=== PATIENT | female | born 1960 | race Hispanic/Latino ===

== ENCOUNTER 2020-09-25 12:13 | Emergency (ER) | payer OTHER ==
--- OUTSIDE RECORDS SUMMARY | 2020-09-25 12:15 | XMS REPORT | Continuity of Care Document ---
:1960 Author Organization [facility] t Address [address] [place] [address] Care Team Providers Name Role Phone Martita Belkys DE LOS SANTOS Attending Clinician Praveena Luke MD Attending Clinician Problems This patient has no known problems. Allergies, Adverse Reactions, Alerts This patient has no known allergies or adverse reactions. Medications This patient has no known medications. Procedures This patient has no known procedures. Encounters Start End Encounter Admission Attending Care Care Encounter Source Date/Time Date/Time Type Type Clinicians Facility Department ID 2020-09-22 2020-09-22 Emergency [facility] [id number] 15:18:00 18:47:00 Zehra Jones [id number] [place] [id number] [place] [id number] 2020-09-06 2020-09-[address] [facility] [id number] 00:00:00 00:00:00 Clarisse Jones [id number] [place] [id number] [facility] [id number] critical access hospital 231 [facility] Results This patient has no known results.
--- OUTSIDE RECORDS SUMMARY | 2020-09-25 12:15 | XMS REPORT | Summary of Care ---
:1960 Author Organization [facility] Address [address] [place] [address] Care Team Providers Name Role Phone MD Alek Unavailable Praveena Luke MD Primary Care Provider Reason for Visit Reason Comments Follow-up Asthma WHEEZING Cough with greenish colored phlegm Encounter Details Date Type Department Care Team Description 07/08/2020 Office Visit [facility] ADC Jenny Roman DO Mild persistent asthma Pulmonary Clinic [facility] without complication [address] [place] [address] ARNOLD Albert (Primary Dx) [address] [place] [phone] Allergies No Known Allergiesdocumented as of this encounter (statuses as of 07/08/2020) Medications Medication Sig Dispensed Refills Start End Date Status Date clonazePAM Take 1 mg by 0 Active (KLONOPIN) 1 mg mouth 2 (two) 6 tablet times daily. lancets (FREESTYLE Check blood 100 Each 11 Active LANCETS) 28 gauge sugar at 6 Misc least once daily. E11.9 blood sugar One Touch 100 Strip 3 Active diagnostic Ultra. Check 7 stripIndications: blood sugar Diet-controlled at least once diabetes mellitus daily E11.9 carBAMazepine 200 mg Take 1 tablet 0 Active 12 hr by mouth at 8 tabletIndications: bedtime. Seizures mometasone (NASONEX) Use 1 [place]ola 17 g 11 Active 50 mcg/actuation in each 8 nasal nostril sprayIndications: daily. Chronic seasonal allergic rhinitis, unspecified trigger triamcinolone Apply to 15 g 1 Active acetonide 0.1 % area(s) 3 8 ointmentIndications: (three) times Dermatitis daily. fluticasone 50 Use 2 Sprays 16 g 11 Ac tive mcg/actuation nasal in each 9 sprayIndications: nostril Allergic rhinitis, daily. unspecified seasonality, unspecified trigger montelukast Take 1 tablet 30 tablet 11 Acti ve (SINGULAIR) 10 mg by mouth at 9 tabletIndications: bedtime. Allergic rhinitis, unspecified seasonality, unspecified trigger, Mild intermittent asthma without complication ipratropium 0.03 % Use 2 Sprays 30 mL 3 Active nasal in each 9 sprayIndications: nostril 3 Cough (three) times daily. ipratropium 0.02 % Inhale 2.5 mL 60 Vial 3 Active nebulizer every 6 (six) 0 solutionIndications: hours as Chronic obstructive needed for pulmonary disease, Wheezing or unspecified COPD Shortness of type Breath. albuterol 2.5 mg /3 Inhale 3 mL 60 Vial 6 Active mL (0.083 %) every 6 (six) 0 nebulizer hours as solutionIndications: needed for Chronic obstructive Wheezing or pulmonary disease, Shortness of unspecified COPD Breath. type LORATADINE 10 mg TAKE ONE 90 tablet 3 Act ivan tabletIndications: TABLET BY 0 Allergic rhinitis, MOUTH DAILY unspecified seasonality, unspecified trigger meloxicam 7.5 mg Take 1 tablet 60 tablet 3 Active tabletIndications: by mouth 0 Arthritis daily. If not helping arthritis pain take 2 daily. levETIRAcetam 750 mg 0 Active tablet 0 ibuprofen 600 mg Take 1 tablet 20 tablet 0 Active tabletIndications: by mouth 0 Sore throat every 6 (six) hours as needed for Pain (scale 4-6). citalopram 40 mg Take 1 tablet 0 Active tabletIndications: by mouth 0 Depression, daily. unspecified depression type OMEPRAZOLE 40 mg TAKE ONE 30 capsule 9 Ac tive capsuleIndications: CAPSULE BY 0 Gastroesophageal MOUTH DAILY reflux disease, esophagitis presence not specified budesonide-formotero Inhale 2 10.2 g 11 Active L (SYMBICORT) Puffs 2 (two) 0 160-4.5 times daily. mcg/actuation inhalerIndications: Mild persistent asthma without complication beclomethasone Inhale 2 0 07/08/20 Disco ntinued dipropionate (QVAR) Puffs 2 (two) 20 (Alternate 80 mcg/actuation times daily. therapy) inhaler budesonide-formotero Inhale 2 10.2 g 6 07/08/20 Discontinued L (SYMBICORT) Puffs 2 (two) 0 20 (R eorder) 160-4.5 times daily. mcg/actuation inhalerIndications: Mild intermittent asthma without complication documented as of this encounter (statuses as of 07/08/2020) Active Problems Problem Noted Date Cough 10/17/2019 Essential hypertension, benign 06/23/2017 Obesity (BMI 30-39.9) 04/27/2017 Seizures 02/18/2016 Overview: Currently being managed by Dr. Sierra in [place] Depression 02/18/2016 Overview: Currently being managed by (Patient cannot remember name) Colon polyps 01/05/2016 Overview: Needs repeat colonoscopy in 3 years, [place] roximately December 2018. Abdominal pain 12/07/2015 cough 08/07/2015 Diet-controlled diabetes mellitus COPD (chronic obstructive pulmonary disease) Overview: not following with logistics center manager. Asthma Overview: follows with Dr. Arambula in [place] documented as of this encounter (statuses as of 07/08/2020) Resolved Problems Problem Noted Date Resolved Date Abscess of abdominal wall 12/14/2015 05/26/2016 Bronchitis, allergic, mild persistent, with acute 08/07/2015 05/26/2016 exacerbation documented as of this encounter (statuses as of 07/08/2020) Immunizations Name Administration Dates Next Due Influenza Virus Vaccine 08/27/2017 Influenza Virus Vaccine Quad .5 mL IM 6+ MO 07/30/2018 Influenza Virus Vaccine Quad ID 18-64 YRS 07/26/2016 Influenza Virus Vaccine Recomb Quad IM, Preserv and ABX 06/09 Free 18-64 YRS Pneumococcal Polysaccharide, PPSV23 (PNEUMOVAX) 06/22/2017 Td 09/12/2015 Zoster Vaccine Recombinant 02/01/2019 documented as of this encounter Social History Tobacco Use Types Packs/Day Years Used Date Former Smoker Cigarettes 0.1 Quit: 02/18/20 06 Smokeless Tobacco: Never Used Alcohol Use Drinks/Week oz/Week Comments No 0 Standard drinks or equivalent 0.0 Sex Assigned at Date Recorded Not on file COVID-19 Exposure Response Date Recorded In the last month, have you been in contact with No / Unsure 07/08/2020 9:42 AM CDT someone who was confirmed or suspected to have Coronavirus / COVID-19? documented as of this encounter Last Filed Vital Signs Vital Sign Reading Time Taken Comments Blood Pressure 138/77 07/08/2020 9:46 AM CDT Pulse 67 07/08/2020 9:46 AM CDT Temperature - - Respiratory Rate 19 07/08/2020 9:46 AM CDT Oxygen Saturation 98% 07/08/2020 9:46 AM CDT Inhaled Oxygen Concentration - - Weight 75.8 kg (167 lb 1.6 oz) 07/08/2020 9:46 AM CDT Height 152.4 cm (5') 07/08/2020 9:46 AM CDT Body Mass Index 32.63 07/08/2020 9:46 AM CDT documented in this encounter Progress Notes Jenny Roman DO - 07/08/2020 10:00 AM CDT [facility] Chief Complaint: Follow up for asthma History of Present Illness: Ml Patino is a 60 year old female her for follow up of asthma last seen two months ago. At that visit, stopped Spiriva and Q emma two visit ago and Symbicort stopped last visit. Did okay but in the last week has had more wheezing as well as cough. Past Medical History: has a past medical history of Asthma, COPD (chronic obstructive pulmonary disease), Depression, Diet-controlled diabetes mellitus, Hypertension, Seasonal allergies, and Seizures. Past Surgical History: has a past surgical history that includes cholecystectomy; section;incision and drainage of abscess; colonoscopy (N/A, 12/28/2015); colonoscopy (01/05/2016); and radicalhysterectomy. Family History: family history includes Cancer in her father; Diabetes in her mother; Heart in her mother. Social History: reports that she quit smoking about 14 years ago. Her smoking use included cigarettes. She smoked 0.10 packs per day. She has never used smokeless tobacco. She reports that she does not drink alcohol or use drugs. Review of Systems: Review of Systems Constitutional: Negative. HENT: Negative. Eyes: Negative. Respiratory: Positive for cough, shortness of breath and wheezing. Cardiovascular: Negative. Gastrointestinal: Negative. Genitourinary: Negative. Musculoskeletal: Negative. Skin: Negative. Neurological: Negative. Psychiatric/Behavioral: Negative. Endocrine: Endocrine negative Objective: BP 138/77 (BP Location: Left arm, Patient Position: Sitting, BP CUFF SIZE: Adult Medium) | Pulse 67 | Resp 19 | Ht 5' (1.524 m) | Wt 167 lb 1.6 oz (75.8 kg) | LMP (LMP Unknown) | SpO2 98% | BMI32.63 kg/m Physical Exam Constitutional: She is oriented to person, place, and time. She appears well- developed and well-nourished. HENT: Head: Normocephalic and atraumatic. Eyes: Conjunctivae and EOM are normal. Neck: Normal range of motion. Neck supple. Cardiovascular: Normal rate and regular rhythm. Pulmonary/Chest: Effort normal. She has wheezes. Abdominal: Soft. Bowel sounds are normal. She exhibits no distension. Musculoskeletal: Normal range of motion. Neurological: She is alert and oriented to person, place, and time. Skin: Skin is warm and dry. Psychiatric: She has a normal mood and affect. Her behavior is normal. Judgment and thought content normal. Labs/Studies: 2017 PFT normal spirometry and lung volumes Assessment: ICD-10-CM ICD-9-CM 1. Mild persistent asthma without complication J45.30 493.90 Possible early asthma exacerbation Plan: Restart Symbicort C/w albuterol If patient does not improve or worsens let us know and we will prescribe prednisone 40 mg x 5 days over the phone Otherwise f/u 4 months documented in this encounter Plan of Treatment Date Type Specialty Care Team Description 08/19/2020 Office Visit Pulmonary Disease Jenny Roman DO [address] [place] [address] Health Maintenance Due Date Last Done Comments COLON CANCER SCREENING 2009 ANNUAL FIT/FOBT COLON CANCER SCREENING FIT 2009 DNA EVERY 3 YEARS COLON CANCER SCREENING 2009 SIGMOIDOSCOPY EVERY 5 YEARS CREATININE (SERUM) 01/28/2020 01/27/2019, 12/31/2017, 04/27/2017, Additional history exists LDL-C 01/28/2020 01/27/2019, 12/31/2017, 12/11/2016 INFLUENZA VACCINE (#1) 2020 06/30/2019, 07/30/2018, 08/27/2017 FOOT EXAM 09/02/2020 09/02/2019, 09/02/2019, 06/27/2018, Additional history exists HgA1C 09/18/2020 03/19/2020, 09/08/2019, 01/27/2019, Additional history exists Zoster Recombinant Vaccine 10/07/2020 02/01/2019 Postp oned from ([facility]) (2 of 2) 03/29/2019 ( Insurance / Financial) Depression Screening 02/09/2021 02/10/2020 EYE EXAM 02/16/2021 02/17/2020, 10/16/2018, 11/15/2016 (Previously completed) URINE MICROALBUMIN 03/19/2021 03/19/2020, 01/27/2019, 12/31/2017, Additional history exists PAP SMEAR 05/05/2021 05/05/2016, 11/24/2010, 02/25/2004 Breast Cancer Screening 05/11/2021 05/11/2020, 01/08/2019, (MAMMOGRAM) 07/02/2017, Additional history exists DTaP,Tdap,and Td Vaccines 12/19/2024 09/12/2015 Postpo ortiz from (1 - Tdap) 1978 (Alternative Guidelines) COLONOSCOPY 05/25/2026 05/25/2016 Colorectal Cancer Screening 05/25/2026 HEPATITIS C (HCV) SCREEN Completed 12/20/2016 PNEUMOCOCCAL 0-64 YEARS Completed 06/22/2017 COMBINED SERIES LUNG CANCER SCREEN: Discontinued Recommended for age 55-80 with 30 + pack year history documented as of this encounter Results Not on filedocumented in this encounter Visit Diagnoses Diagnosis Mild persistent asthma without complicat ion - Primary Unspecified asthma documented in this encounter Insurance Payer Benefit Plan / Subscriber ID Effective Dates Phone Addre ss Type Group [facility] [id number] 2016-Present Medicaid COMM PLAN - PLUS MANAGED MEDICAID documented as of this encounter"
--- OUTSIDE RECORDS SUMMARY | 2020-09-25 12:15 | XMS REPORT | Summary of Care ---
:1960 Author Organization [facility] - Health Address [address] [place] [address] Care Team Providers Name Role Phone MD Alek Unavailable Tanna Luke MD Primary Care Provider Reason for Visit Reason Comments Sore Throat Cough LAB Encounter Details Date Type Department Care Team Description 07/06/2020 Laboratory Only [facility] Jeniffer Matthew, [employer] [address] [place] [address] Exposure to Medicine - [facility], [facility] Fam Pob I SARS-associated [address] [facility] coronaviru s ([address] Drive Dx) [place] [address] Allergies No Known Allergiesdocumented as of this encounter (statuses as of 07/06/2020) Medications Medication Sig Dispensed Refills Start Date End Date Status clonazePAM (KLONOPIN) 1 Take 1 mg by 0 12/20/2015 Active mg tablet mouth 2 (two) times daily. beclomethasone Inhale 2 Puffs 2 0 Active dipropionate (QVAR) 80 (two) times mcg/actuation inhaler daily. lancets (FREESTYLE Check blood 100 Each 11 09/26/2016 Active LANCETS) 28 gauge Misc sugar at least once daily. E11.9 blood sugar diagnostic One Touch Ultra. 100 Strip 3 12/21/2016 Active stripIndications: Check blood Diet-controlled sugar at least diabetes mellitus once daily E11.9 carBAMazepine 200 mg 12 Take 1 tablet by 0 8 Active hr tabletIndications: mouth at Seizures bedtime. mometasone (NASONEX) 50 Use 1 [place] in 17 g 11 12/25/2017 Active mcg/actuation nasal each nostril sprayIndications: daily. Chronic seasonal allergic rhinitis, unspecified trigger triamcinolone acetonide Apply to 15 g 1 07/30/2018 Active 0.1 % area(s) 3 ointmentIndications: (three) times Dermatitis daily. fluticasone 50 Use 2 Sprays in 16 g 11 12/31/2018 Active mcg/actuation nasal each nostril sprayIndications: daily. Allergic rhinitis, unspecified seasonality, unspecified trigger montelukast (SINGULAIR) Take 1 tablet by 30 tablet 11 9 Active 10 mg mouth at tabletIndications: bedtime. Allergic rhinitis, unspecified seasonality, unspecified trigger, Mild intermittent asthma without complication ipratropium 0.03 % Use 2 Sprays in 30 mL 3 09/02/2019 Active nasal sprayIndications: each nostril 3 Cough (three) times daily. ipratropium 0.02 % Inhale 2.5 mL 60 Vial 3 10/17/2019 Active nebulizer every 6 (six) solutionIndications: hours as needed Chronic obstructive for Wheezing or pulmonary disease, Shortness of unspecified COPD type Breath. albuterol 2.5 mg /3 mL Inhale 3 mL 60 Vial 6 10/17/2019 Active (0.083 %) nebulizer every 6 (six) solutionIndications: hours as needed Chronic obstructive for Wheezing or pulmonary disease, Shortness of unspecified COPD type Breath. LORATADINE 10 mg TAKE ONE TABLET 90 tablet 3 12/24/2019 Active tabletIndications: BY MOUTH DAILY Allergic rhinitis, unspecified seasonality, unspecified trigger meloxicam 7.5 mg Take 1 tablet by 60 tablet 3 02/25/2020 Active tabletIndications: mouth daily. If Arthritis not helping arthritis pain take 2 daily. levETIRAcetam 750 mg 0 02/12/2020 Active tablet ibuprofen 600 mg Take 1 tablet by 20 tablet 0 02/27/2020 Active tabletIndications: Sore mouth every 6 throat (six) hours as needed for Pain (scale 4-6). citalopram 40 mg Take 1 tablet by 0 03/19/2020 Active tabletIndications: mouth daily. Depression, unspecified depression type budesonide-formoteroL Inhale 2 Puffs 2 10.2 g 6 04/06/2020 Active (SYMBICORT) 160-4.5 (two) times mcg/actuation daily. inhalerIndications: Mild intermittent asthma without complication OMEPRAZOLE 40 mg TAKE ONE CAPSULE 30 capsule 9 04/26/2020 Active capsuleIndications: BY MOUTH DAILY Gastroesophageal reflux disease, esophagitis presence not specified documented as of this encounter (statuses as of 07/06/2020) Active Problems Problem Noted Date Cough 10/17/2019 Essential hypertension, benign 06/23/2017 Obesity (BMI 30-39.9) 04/27/2017 Seizures 02/18/2016 Overview: Currently being managed by Dr. Sierra in [place] Depression 02/18/2016 Overview: Currently being managed by (Patient cannot remember name) Colon polyps 01/05/2016 Overview: Needs repeat colonoscopy in 3 years, [place] roximately December 2018. Abdominal pain 12/07/2015 cough 08/07/2015 Diet-controlled diabetes mellitus COPD (chronic obstructive pulmonary disease) Overview: not following with retention representative. Asthma Overview: follows with Dr. Arambula in [place] documented as of this encounter (statuses as of 07/06/2020) Resolved Problems Problem Noted Date Resolved Date Abscess of abdominal wall 12/14/2015 05/26/2016 Bronchitis, allergic, mild persistent, with acute 08/07/2015 05/26/2016 exacerbation documented as of this encounter (statuses as of 07/06/2020) Immunizations Name Administration Dates Next Due Influenza [...] Date Former Smoker Cigarettes 0.1 Quit: 02/18/20 Smokeless Tobacco: Never Used Alcohol Use Drinks/Week oz/Week Comments No 0 Standard drinks or equivalent 0.0 Sex Assigned at Date Recorded Not on file COVID-19 Exposure Response Date Recorded In the last month, have you been in contact with No / Unsure 07/05/2020 9:29 AM CDT someone who was confirmed or suspected to have Coronavirus / COVID-19? documented as of this encounter Last Filed Vital Signs Not on filedocumented in this encounter Nursing Notes Elisabeth Torrez MA - 07/06/2020 5:20 PM CDTRita Sandra Patino is a 60 year old female here for COVID Screening with a Nasopharyngeal Swab All droplet and contact precautions taken with appropriate PPE worn while interacting with patient. ? Goggles ? N95 Mask ? Gloves ? Gown RR 18 Pulse Ox 97% Patient educated on plan of care for visit, swabbing technique, risks and benefits of test and length of time to receive results. Verbal consent obtained to perform test. CDC Fact Sheet for Patients nCoV Diagnostic Panel dated 12/21/2019 and Factsheet What to Do if Sick with COVID 19 12/01/19 provided. Patient swabbed per appropriate nasopharyngeal technique, and patient tolerated well. Patient was discharged from the testing clinic in stable condition. Elisabeth Torrez MA 07/06/2020 4:32 PM Bilate nares swabbed during COVID19 nasopharyngeal swab. documented in this encounter Plan of Treatment Date Type Specialty Care Team Description 07/08/2020 Office Visit Pulmonary Disease Jenny Roman, [address] [place] [phone] 08/19/2020 Office Visit Pulmonary Disease Jenny Roman, [facility] [place] [phone] Name Type Priority Associated Diagnoses Order S chedule COVID-19 (PCR MOLECULAR LAB Routine Exposure to Expe cted: 07/06/2020, TESTING) SARS-associated Expires: coronavirus Health Maintenance Due Date Last Done Comments [...] filedocumented in this encounter Visit Diagnoses Diagnosis Exposure to SARS-associated coronavirus - Primary documented in this encounter Additional Health Concerns Infection Onset Date Last Indicated Resolved Time COVID-19 Rule Out 07/06/2020 07/06/2020 documented as of this encounter Insurance Payer Benefit Plan / Subscriber ID Effective Dates Phone Addre ss Type Group [facility] [id number] 2016-Present Medicaid COMM PLAN - PLUS MANAGED MEDICAID documented as of this encounter
--- OUTSIDE RECORDS SUMMARY | 2020-09-25 12:16 | XMS REPORT | Summary of Care ---
:1960 Author Organization [facility] Address [address] [place] [address] Care Team Providers Name Role Phone MD Alek Unavailable Praveena Luke MD Primary Care Provider Reason for Visit Reason Comments Rx Concern/Question Encounter Details Date Type Department Care Team Description 07/08/2020 Telephone [facility] [employer] ADC Jenny Roman DO Rx Concern/Question Pulmonary Clinic [address] DrAngelica, [address] [place] [phone] Allergies No Known Allergiesdocumented as of this encounter (statuses as of 07/09/2020) Medications Medication Sig Dispensed Refills Start Date End Date Status clonazePAM (KLONOPIN) 1 Take 1 mg by 0 12/20/2015 Active mg tablet mouth 2 (two) times daily. lancets (FREESTYLE Check blood 100 Each 11 09/26/2016 Active LANCETS) 28 gauge Misc sugar at least once daily. E11.9 blood sugar diagnostic One Touch 100 Strip 3 12/21/2016 Active stripIndications: Ultra. Check Diet-controlled blood sugar at diabetes mellitus least once daily E11.9 carBAMazepine 200 mg 12 Take 1 tablet 0 12/25/2017 Active hr tabletIndications: by mouth at Seizures bedtime. mometasone (NASONEX) 50 Use 1 [place] in 17 g 11 12/25/2017 Active mcg/actuation [...] unspecified trigger montelukast (SINGULAIR) Take 1 tablet 30 tablet 11 12/31/2018 Active 10 mg by mouth at tabletIndications: bedtime. Allergic rhinitis, unspecified [...] mg Take 1 tablet 60 tablet 3 02/25/2020 Active tabletIndications: by mouth daily. Arthritis If not helping arthritis pain take 2 daily. levETIRAcetam 750 mg 0 02/12/2020 Active tablet ibuprofen 600 mg Take 1 tablet 20 tablet 0 02/27/2020 Active tabletIndications: Sore by mouth every throat 6 (six) hours as needed for Pain (scale 4-6). citalopram 40 mg Take 1 tablet 0 03/19/2020 Active tabletIndications: by mouth daily. Depression, unspecified depression type OMEPRAZOLE 40 mg TAKE ONE 30 capsule 9 04/26/2020 A ctive capsuleIndications: CAPSULE BY Gastroesophageal reflux MOUTH DAILY disease, esophagitis presence not specified budesonide-formoteroL Inhale 2 Puffs 10.2 g 11 07/08/2020 Active (SYMBICORT) 160-4.5 2 (two) times mcg/actuation daily. inhalerIndications: Mild persistent asthma without complication predniSONE 20 mg Take 2 tablets 10 tablet 0 07/09/2020 020 Active tabletIndications: Mild by mouth daily persistent asthma with for 5 days. exacerbation documented as of this encounter (statuses as of 07/09/2020) Active Problems Problem Noted Date Cough 10/17/2019 Essential hypertension, benign 06/23/2017 Obesity (BMI 30-39.9) 04/27/2017 Seizures 02/18/2016 Overview: Currently being managed by Dr. Sierra in [facility] 02/18/2016 Overview: Currently being managed by (Patient cannot remember name) Colon polyps 01/05/2016 Overview: Needs repeat colonoscopy in 3 years, [place] roximately December 2018. 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 Asthma Overview: follows with Dr. Arambula in [place] documented as of this encounter (statuses as of 07/09/2020) Resolved Problems Problem Noted Date Resolved Date Abscess of abdominal wall 12/14/2015 05/26/2016 Bronchitis, allergic, mild persistent, with acute 08/07/2015 05/26/2016 exacerbation documented as of this encounter (statuses as of 07/09/2020) Immunizations Name Administration Dates Next Due Influenza [...] Signs Not on filedocumented in this encounter Miscellaneous Notes Telephone Encounter - Bridgette Lopez MA - 07/09/2020 2:49 PM CDTPatient was informed and verbalized understanding. elephone Encounter - Jenny Roman DO - 07/09/2020 2:48 PM CDTPrescription sent to pharmacy elephone Encounter - Wanda Dior - 07/08/2020 4:06 PM CDTPatient was seen today 07/[address] Roman, was offered a steroid, but decided no. She is calling stating she would now like to have the steroid prescribed. documented in this encounter Plan of Treatment Date Type Specialty Care Team Description 11/18/2020 Office Visit Pulmonary Disease Jenny Roman DO [address] [place] [address] Health Maintenance Due Date Last [...] without complicat ion - Primary Unspecified asthma Mild intermittent asthma without complic ation Unspecified asthma Mild persistent asthma with exacerbation Unspecified asthma, with exacerbation documented in this encounter Insurance Payer Benefit Plan / Subscriber ID Effective Dates Phone Addre ss Type Group [facility] [id number] 2016-Present Medicaid COMM PLAN - PLUS MANAGED MEDICAID documented as of this encounter
--- OUTSIDE RECORDS SUMMARY | 2020-09-25 12:16 | XMS REPORT | Summary of Care ---
:1960 Author Organization [facility] Address [address] [place] [address] Care Team Providers Name Role Phone MD Alek Unavailable Praveena Luke MD Primary Care Provider Reason for Visit Reason Comments Assessment Encounter Details Date Type Department Care Team Description 08/04/[address] [facility] ADC Pulmonary Jenny Roman DO Assessment Clinic [address] Jenna Albert [address] [place] [phone] Allergies No Known Allergiesdocumented as of this encounter (statuses as of 08/04/2020) Medications Medication Sig Dispensed Refills Start Date [...] Seizures bedtime. mometasone (NASONEX) 50 Use 1 [place] in 17 g 11 12/25/2017 Active mcg/actuation [...] inhalerIndications: Mild persistent asthma without complication predniSONE 10 mg tablet Take 4 tablets 20 tablet 0 08/04/2020 08/09/2020 Active by mouth daily for 5 days. documented as of this encounter (statuses as of 08/04/2020) Active Problems Problem Noted Date Cough 10/17/2019 Essential hypertension, benign 06/23/2017 Obesity (BMI 30-39.9) 04/27/2017 Seizures 02/18/2016 Overview: Currently being managed by Dr. Sierra in [place] Depression 02/18/2016 Overview: Currently being managed by (Patient cannot remember name) Colon polyps 01/05/2016 Overview: Needs repeat colonoscopy in 3 years, [place] roximately December 2018. 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 Asthma Overview: follows with Dr. Arambula in [place] documented as of this encounter (statuses as of 08/04/2020) Resolved Problems Problem Noted Date Resolved Date Abscess of abdominal wall 12/14/2015 05/26/2016 Bronchitis, allergic, mild persistent, with acute 08/07/2015 05/26/2016 exacerbation documented as of this encounter (statuses as of 08/04/2020) Immunizations Name Administration Dates Next Due Influenza [...] this encounter Miscellaneous Notes Telephone Encounter - Yancy Hart RN - 08/04/2020 2:28 PM CDT Summary: feeling worse, wheezing , doesn't feel like symbicort is working We discussed: Full improvement in your symptoms may not occur for 2 weeks or longer after you have started treatment of symbicort. Sent in prednisone as outlined by . Use albuterol nebs every 4 hours as needed. Will reassess Paitient on Sunday . Gave zeng ER warnings.. Patient reports: 1. Increased shortness of breath despite restarting symbicort 2. Wheezing over the phone STUART 10..20 Assessment: ICD-10-CM ICD-9-CM 1. Mild persistent asthma without complication J45.30 493.90 Possible early asthma exacerbation Plan: Restart Symbicort C/w albuterol If patient does not improve or worsens let us know and we will prescribe prednisone 40 mg x 5 days over the phone Otherwise f/u [address] Jenny Roman elephone Encounter - Tracie Laughlin - 08/04/2020 12:17 PM CDTRrahul Patino is a 60 year old female patient is stating that medication she is currently takingdoes not seem to be working. She is requesting something besides symbicort. She is alternating with nebulizer but she is still having trouble with breathing in the PM and is lacking sleep. Please advise. documented in this encounter Plan of Treatment Date Type Specialty Care Team Description 08/18/2020 Office Visit Family Medicine Collin Rodriguez MD [address] [place] [address] Dr [place], [place] [address] 11/18/2020 Office Visit Pulmonary Disease Jenny Roman DO [address] [place] [address] [phone] Health Maintenance Due Date Last Done Comments [...] Results Not on filedocumented in this encounter Insurance Payer Benefit Plan / Subscriber ID Effective Dates Phone Addre ss Type Group [facility] [id number] 2016-Present Medicaid COMM PLAN - PLUS MANAGED MEDICAID documented as of this encounter
--- OUTSIDE RECORDS SUMMARY | 2020-09-25 12:16 | XMS REPORT | Summary of Care ---
:1960 Author Organization [facility] Address [address] [place] [address] Care Team Providers Name Role Phone MD Alek Unavailable Praveena Luke MD Primary Care Provider Reason for Visit Reason Comments Follow-up Asthma WHEEZING Cough with greenish colored phlegm Encounter Details Date Type Department Care Team Description 07/08/2020 Office Visit [facility] ADC Jenny Roman DO Mild persistent asthma Pulmonary Clinic [facility] without complication [address] [place] [address] ARNOLD Albert (Primary Dx) [address] [place] [phone] Allergies No Known Allergiesdocumented as of this [...] tabletIndications: bedtime. Seizures mometasone (NASONEX) Use 1 [place] 17 g 11 Active 50 mcg/actuation in [...] Currently being managed by Dr. Sierra in [place] Depression 02/18/2016 Overview: Currently being managed by (Patient cannot remember name) Colon polyps 01/05/2016 Overview: Needs repeat colonoscopy in 3 years, [place] roximately December 2018. 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 Asthma Overview: follows with Dr. Arambula in [place] documented as of this encounter (statuses as [...] Roman DO - 07/08/2020 10:00 AM CDT [facility] Chief Complaint: Follow [...] Office Visit Pulmonary Disease Jenny Roman DO [address] [place] [address] Health Maintenance Due Date Last [...] Effective Dates Phone Addre ss Type Group [facility] [id number] 2016-Present Medicaid COMM PLAN - PLUS MANAGED MEDICAID documented as of this encounter"
--- OUTSIDE RECORDS SUMMARY | 2020-09-25 12:17 | XMS REPORT | Summary of Care ---
:1960 Author Organization [facility] Address [address] [place] [address] Care Team Providers Name Role Phone MD Alek Unavailable Praveena Luke MD Primary Care Provider Reason for Visit Reason Comments NURSE ONLY Encounter Details Date Type Department Care Team Description 08/16/2020 Nurse Visit [facility] Pediatric Clarisse Luke MD [address] [place] [address] [address] [place] [address] Need for vaccination and Adult Primary Nurse, Brock Fam (Primary Dx) Care- [address], [address] [place] [address] Allergies No Known Allergiesdocumented as of this encounter (statuses as of 08/16/2020) Medications Medication Sig Dispensed Refills Start Date [...] Seizures bedtime. mometasone (NASONEX) 50 Use 1 [place] in 17 g 11 12/25/2017 Active mcg/actuation [...] tabletIndications: mouth daily. Depression, unspecified depression type OMEPRAZOLE 40 mg TAKE ONE CAPSULE 30 capsule 9 04/26/2020 Active capsuleIndications: BY MOUTH DAILY Gastroesophageal reflux disease, esophagitis presence not specified budesonide-formoteroL Inhale 2 Puffs 2 10.2 g 11 07/08/2020 Active (SYMBICORT) 160-4.5 (two) times mcg/actuation daily. inhalerIndications: Mild persistent asthma without complication metformin ER 500 mg 24 Take 1 tablet by 90 tablet 1 08/13/2020 Active hr tabletIndications: mouth daily with Diabetes mellitus type breakfast. II, non insulin dependent documented as of this encounter (statuses as of 08/16/2020) Active Problems Problem Noted Date Need for influenza vaccination 08/13/2020 Cough 10/17/2019 Essential hypertension, benign 06/23/2017 Obesity (BMI 30-39.9) 04/27/2017 Seizures 02/18/2016 Overview: Currently being managed by Dr. Sierra in [facility] 02/18/2016 Overview: Currently being managed by (Patient cannot remember name) Colon polyps 01/05/2016 Overview: Needs repeat colonoscopy in 3 years, [place] roximately December 2018. 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 Asthma Overview: follows with Dr. Arambula in [place] documented as of this encounter (statuses as of 08/16/2020) Resolved Problems Problem Noted Date Resolved Date Abscess of abdominal wall 12/14/2015 05/26/2016 Bronchitis, allergic, mild persistent, with acute 08/07/2015 05/26/2016 exacerbation documented as of this encounter (statuses as of 08/16/2020) Immunizations Name Administration Dates Next Due Influenza Virus Vaccine 08/27/2017 Influenza Virus Vaccine Quad .5 mL IM 6+ MO 08/16/2020, 07/09 Influenza Virus Vaccine Quad ID 18-64 YRS 07/26/2016 Influenza Virus Vaccine Recomb Quad IM, Preserv and 06/30/20 19 ABX Free 18-64 YRS Pneumococcal Polysaccharide, PPSV23 (PNEUMOVAX) [...] been in contact with No / Unsure 08/16/2020 10:20 AM RADIOLOGY THERAPIST someone who was confirmed or suspected to have Coronavirus / COVID-19? documented as of this encounter Last Filed Vital Signs Not on filedocumented in this encounter Plan of Treatment Date Type Specialty Care Team Description 11/16/2020 Office Visit Family Medicine Collin Rodriguez MD [address] [place] [address] Dr [place] [address] [place] [address] [phone] 11/18/2020 Office Visit Pulmonary Disease Jenny Roman DO [address] [place] [phone] Health Maintenance Due Date Last Done Comments [...] year history documented as of this encounter Procedures Procedure Name Priority Date/Time Associated Diagnosis Comme nts FLU VACC ([id number]), Routine 08/16/2020 10:43 AM RADIOLOGY THERAPIST Need for vaccination 6+ MONTHS, IM, QUAD documented in this encounter Results Not on filedocumented in this encounter Visit Diagnoses Diagnosis Need for vaccination - Primary Need for prophylactic vaccination and in oculation against unspecified single disease documented in this encounter Insurance Payer Benefit Plan / Subscriber ID Effective Dates Phone Addre ss Type Group [facility] [id number] 2016-Present Medicaid COMM PLAN - PLUS MANAGED MEDICAID documented as of this encounter
--- OUTSIDE RECORDS SUMMARY | 2020-09-25 12:17 | XMS REPORT | Summary of Care ---
:1960 Author Organization [facility] Address [address] [place] [address] Care Team Providers Name Role Phone MD Alek Unavailable Praveena Luke MD Primary Care Provider Reason for Visit Reason Comments LAB Encounter Details Date Type Department Care Team Description 08/16/2020 Loss Prevention Supervisor Visit [facility] Janelle Luke MD [address] [place] [address] Dr [address] [place] [address] Diabetes mellitus Professional Office 2, [facility] Lab type II, non Building Phlebotomy insulin dependent Lab Professional Office Building [address] [place] [address] , [address] [place] [address] Allergies No Known Allergiesdocumented as of this [...] Seizures bedtime. mometasone (NASONEX) 50 Use 1 [place] in 17 g 11 12/25/2017 Active mcg/actuation [...] Currently being managed by Dr. Sierra in [facility] 02/18/2016 Overview: Currently being managed by (Patient cannot remember name) Colon polyps 01/05/2016 Overview: Needs repeat colonoscopy in 3 years, [place] roximately December 2018. 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 Asthma Overview: follows with Dr. Arambula in [place] documented as of this encounter (statuses as [...] with No / Unsure 08/16/2020 10:20 AM SURVEY SUPERVISOR someone who was confirmed or suspected to have Coronavirus / COVID-19? documented as of this encounter Last Filed Vital Signs Not on filedocumented in this encounter Nursing Notes Eli Rondon - 08/16/2020 10:00 AM CST Venipuncture collection performed by clean technique on the right anticubitus. Total of 1 attempts were made. Slight pressure and a bandage/dressing were applied to the site(s). The patient experiencedno complications. The following specimens were processed according to instructions and sent to [facility] laboratories per lab order on 08/16/20: LT BLUE SST 1 RED LAV 2 PPT DK GREEN (LiHep) DK GREEN (SodH) [facility] DK BLUE (K2) DK BLUE (S) ACD Blood Culture NIPT/NTD documented in this encounter Plan of Treatment Date Type Specialty Care Team Description 11/16/2020 Office Visit Family Medicine Collin Rodriguez MD [address] [place] [address] Dr [place] [address] [place] [address] [phone] 11/18/2020 Office Visit Pulmonary Disease Jenny Roman DO [address] [place] [phone] Health Maintenance Due Date Last Done [...] exists DTaP,Tdap,and Td Vaccines 12/19/2024 09/12/2015 Postpo rotiz from (1 - Tdap) 1978 (Alternative Guidelines) COLONOSCOPY 05/25/2026 05/25/2016 Colorectal Cancer Screening 05/25/2026 HEPATITIS C (HCV) SCREEN Completed 12/20/2016 PNEUMOCOCCAL 0-64 YEARS Completed 06/22/2017 COMBINED SERIES LUNG CANCER SCREEN: Discontinued Recommended for age 55-80 with 30 + pack year history documented as of this encounter Results Not on filedocumented in this encounter Visit Diagnoses Diagnosis Diabetes mellitus type II, non insulin d ependent Type II or unspecified type diabetes deb litus without mention of complication, not stated as uncontrolled documented in this encounter Insurance Payer Benefit Plan / Subscriber ID Effective Dates Phone Addre ss Type Group [facility] [id number] 2016-Present Medicaid COMM PLAN - PLUS MANAGED MEDICAID documented as of this encounter
--- OUTSIDE RECORDS SUMMARY | 2020-09-25 12:18 | XMS REPORT | Summary of Care ---
:1960 Author Organization [facility] - [facility] Address [address] [place] [id number] Care Team Providers Name Role Phone MD Alek Unavailable Praveena Luke MD Primary Care Provider Reason for Referral (Routine) Status Reason Specialty Diagnoses / Referred By Referred To Procedures Contact Contact Open Patient Requested Psychiatry Diagnoses Current mild episode of major depressive disorder, unspecified whether recurrent Edemeotilio, Specific Provider Procedures CONSULT/REFERRAL PSYCHOLOGY MD Collin [address] [place] [address] [address] [place] [address] Reason for Visit Reason Comments Hypertension Diabetes VACCINATIONS LAB WORK Encounter Details Date Type Department Care Team Description 08/13/2020 Telemedicine Visit [facility] Collin Rodriguez, Diab etes mellitus type II, non insulin dependent (Primary Dx); Pediatric and Adult Essential hypertension, benign; Primary Care- [address] [place] [address] Chronic obs tructive pulmonary disease, unspecified COPD type; Robert Franco Current mild episode of major depressive disorder, unspecified whether recurrent; [address] [place] [address] [address], [address] [place] [phone] Allergies No Known Allergiesdocumented as of this encounter (statuses as of 08/19/2020) Medications Medication Sig Dispensed Refills Start Date End Date Status clonazePAM (KLONOPIN) 1 Take 1 mg by 0 12/20/2015 Active mg tablet mouth 2 (two) times daily. lancets (FREESTYLE Check blood 100 Each 11 09/26/2016 Active LANCETS) 28 gauge [facility] sugar at least once daily. E11.9 blood sugar diagnostic One Touch Ultra. 100 Strip 3 12/21/2016 Active stripIndications: Check blood Diet-controlled sugar at least diabetes mellitus once daily E11.9 carBAMazepine 200 mg 12 Take 1 tablet by 0 8 Active hr tabletIndications: mouth at Seizures bedtime. mometasone (NASONEX) 50 Use 1 Aspers in 17 g 11 12/25/2017 Active mcg/actuation [...] as of this encounter (statuses as of 08/19/2020) Active Problems Problem Noted Date Need for influenza vaccination 08/13/2020 Cough 10/17/2019 Essential hypertension, benign 06/23/2017 Obesity (BMI 30-39.9) 04/27/2017 Seizures 02/18/2016 Overview: Currently being managed by Dr. Sierra in [place] Depression 02/18/2016 Overview: Currently being managed by (Patient cannot remember name) Colon polyps 01/05/2016 Overview: Needs repeat colonoscopy in 3 years, [place] roximately December 2018. Abdominal pain 12/07/2015 cough 08/07/2015 Diet-controlled diabetes mellitus Chronic obstructive pulmonary disease, unspecified DIRECT SERVICE PROVIDER D type Overview: not following with radio journalist. Asthma Overview: follows with Dr. Arambula in [place] documented as of this encounter (statuses as of 08/19/2020) Resolved Problems Problem Noted Date Resolved Date Abscess of abdominal wall 12/14/2015 05/26/2016 Bronchitis, allergic, mild persistent, with acute 08/07/2015 05/26/2016 exacerbation documented as of this encounter (statuses as of 08/19/2020) Immunizations Name Administration Dates Next Due Influenza [...] with No / Unsure 08/16/2020 10:20 AM CONSULAR OFFICER someone who was confirmed or suspected to have Coronavirus / COVID-19? documented as of this encounter Last Filed Vital Signs Not on filedocumented in this encounter Patient Instructions Patient InstructionsEdCollin farr MD - 08/13/2020 9:40 AM CONSULAR OFFICER Patient Education Counseling for Depression For some people, counseling can work as well as medicine for mild to moderate depression. Counselingis also called talk therapy. When done by a trained professional, this treatment is a powerful way to better understand your thoughts and feelings. Like medicine, it may take time before you notice howmuch counseling is helping. Kinds of talk therapy Different counselors use different methods for talk therapy. But all therapy aims to help change howyou think about your problem. Most therapy for depression is often done one-on-one. But it may also be done in a group setting. You and your healthcare provider can discuss the type of therapy you think would work best for you. You can also discuss who the best person is to provide the therapy. How therapy helps Talking about your problems can help them seem less overwhelming. It can help work through problems you have with your life and your relationships. It can also help you understand how depression is clouding your thinking, not letting you see the world the way it really is. Therapy can give you: Insight about your emotions New tools for dealing with your problems Emotional support for making progress Getting better takes time Talk therapy can help you feel better. But change doesnt happen right away. Depression takes awayyour energy and motivation. So it can be hard to feel like going to therapy and sticking with it. But therapy has been proven to be very valuable in the treatment of depression. Therapy for depression is often done for a set number of sessions. In other cases, you and your therapist decide together atwhat point you no longer need therapy. Additional sources of help In addition to a professional counselor, it may help to talk to other people in your life. You may find support and insight from: A close friend or family member A produce production team member trained in counseling A local support group or community group A 12-step program such as Alcoholics Anonymous for dealing with problems that can contribute to depression, such as alcohol or drug addiction [employer] last reviewed this educational content on 06/08/201919998141-5523 [employer]. [address] [place] [address], [place] [address]. All rights reserved. This information is not intended as a substitute for professional medical care. Always follow your healthcare professional's instructions. ULAR OFFICER documented in this encounter Progress Notes Collin Rodriguez MD - 08/13/2020 9:40 AM CST TELEMEDICINE CLINIC NOTE DATE OF SERVICE: VISIT TYPE: TELEMEDICINE This is a telemedicine visit, without video (doximity) Due to concern for COVID 19 spread, conduct telemedicine visit today. Verbal consent obtained from Patient: Ml Patino for telehealth services provided below. Communication with patient was conducted via Telephone due to patient unable to obtain video call option. Location of Patient: Home Location of Provider: Clinic Phone call to patient. Name and identified. CHIEF COMPLAINT: Chief Complaint Patient presents with Hypertension Diabetes VACCINATIONS LAB WORK Ml Patino is a 59 year old female with PMH of recent URI s/p Augmentin and bromfed presenting for follow-up. Patient has hx asthma, COPD, had stop some of her medications (montelukast), notes she restarted using Symbicort with breathing treatment via nebulizer PRN. Patient is established with Pulmonary Medicine, lat appointment was about 2 weeks ago. Patient has DM-II, most recent A1c 6.2 >> 6.9 >> 7.3, not currently on any medication, had been trying to manage it with dietary changes. Patient has HTN, Home BP this morning is 136/79, currently controlled with diet. Patient reports her depression is stable, she does not see her son often, but is doing well, seeing her grand children, denies SI/HI/AH/VH, reports good social support, defers on referral/consult to counselor at this time. Patient is UTD on pneumococcal, influenza, tetanus (Td) and shingels vaccinations. Patient will comeinto clinic to complete flu vaccination. Patient is an ex-smoker, stopped smoking in 1982. Allergies Ml has No Known Allergies. Medications Outpatient Medications Prior to Visit Medication Sig Dispense Refill budesonide-formoteroL (SYMBICORT) 160-4.5 mcg/actuation inhaler Inhale 2 Puffs 2 (two) times daily. 10.2 g 11 OMEPRAZOLE 40 mg capsule TAKE ONE CAPSULE BY MOUTH DAILY 30 capsule 9 citalopram 40 mg tablet Take 1 tablet by mouth daily. ibuprofen 600 mg tablet Take 1 tablet by mouth every 6 (six) hours as needed for Pain (scale 4-6). 20 tablet 0 levETIRAcetam 750 mg tablet meloxicam 7.5 mg tablet Take 1 tablet by mouth daily. If not helping arthritis pain take 2 daily. 60 tablet 3 LORATADINE 10 mg tablet TAKE ONE TABLET BY MOUTH DAILY 90 tablet 3 albuterol 2.5 mg /3 mL (0.083 %) nebulizer solution Inhale 3 mL every 6 (six) hours as needed for Wheezing or Shortness of Breath. 60 Vial 6 ipratropium 0.02 % nebulizer solution Inhale 2.5 mL every 6 (six) hours as needed for Wheezing or Shortness of Breath. 60 Vial 3 ipratropium 0.03 % nasal spray Use 2 Sprays in each nostril 3 (three) times daily. 30 mL 3 fluticasone 50 mcg/actuation nasal spray Use 2 Sprays in each nostril daily. 16 g 11 montelukast (SINGULAIR) 10 mg tablet Take 1 tablet by mouth at bedtime. 30 tablet 11 triamcinolone acetonide 0.1 % ointment Apply to area(s) 3 (three) times daily. 15 g 1 carBAMazepine 200 mg 12 hr tablet Take 1 tablet by mouth at bedtime. mometasone (NASONEX) 50 mcg/actuation nasal spray Use 1 Aspers in each nostril daily. 17 g 11 blood sugar diagnostic strip One Touch Ultra. Check blood sugar at least once daily E11.9 100 Strip 3 lancets (FREESTYLE LANCETS) 28 gauge Misc Check blood sugar at least once daily. E11.9 100 Each 11 clonazePAM (KLONOPIN) 1 mg tablet Take 1 mg by mouth 2 (two) times daily. No facility-administered medications prior to visit. Histories Past Medical History: Diagnosis Date Asthma follows with Dr. Arambula in [place] COPD (chronic obstructive pulmonary disease) not following with radio journalist. Depression Diet-controlled diabetes mellitus Hypertension not on medications Seasonal allergies Seizures follows with neurologist Dr. Sierra in [place] Past Surgical History: Procedure Laterality Date SECTION CHOLECYSTECTOMY COLONOSCOPY N/A 12/28/2015 Surgeon: Iraj Naylor MD; Location: [facility] COLONOSCOPY 01/05/2016 INCISION AND DRAINAGE OF ABSCESS R abdomen RADICAL HYSTERECTOMY Social History Socioeconomic History Marital status: Spouse name: Not on file Number of children: Not on file Years of education: Not on file Highest education level: Not on file Occupational History Not on file Social Needs Financial resource strain: Not on file Food insecurity Worry: Not on file Inability: Not on file Transportation needs Medical: Not on file Non-medical: Not on file Tobacco Use Smoking status: Former Smoker Packs/day: 0.10 Types: Cigarettes Quit date: 02/17/2006 Years since quittin.5 Smokeless tobacco: Never Used Substance and Sexual Activity Alcohol use: No Alcohol/week: 0.0 standard drinks Drug use: No Sexual activity: Never Lifestyle Physical activity Days per week: Not on file Minutes per session: Not on file Stress: Not on file Relationships Social connections Talks on phone: Not on file Gets together: Not on file Attends rastafarian service: Not on file Active member of club or organization: Not on file Attends meetings of clubs or organizations: Not on file Relationship status: Not on file Intimate partner violence Fear of current or ex partner: Not on file Emotionally abused: Not on file Physically abused: Not on file Forced sexual activity: Not on file Other Topics Concern Not on file Social History Narrative Lives with her nephew. Employed: no disabled Exercise: none Family History Problem Relation Age of Onset Heart Mother Diabetes Mother Cancer Father Review of Systems HENT: Negative for congestion and sneezing. Respiratory: Negative for cough and wheezing. Cardiovascular: Negative for chest pain and palpitations. Gastrointestinal: Negative for constipation and diarrhea. Genitourinary: Negative for polyuria. Musculoskeletal: Negative for arthralgias and myalgias. Neurological: Negative for weakness. Psychiatric/Behavioral: Negative for agitation and behavioral problems. Endocrine: Negative for polydipsia, polyphagia and polyuria. Vital Signs LMP (LMP Unknown) Physical Exam Constitutional: General: She is not in acute distress. HENT: Right Ear: Hearing normal. Left Ear: Hearing normal. Nose: No mucosal edema. Right Sinus: No maxillary sinus tenderness or frontal sinus tenderness. Left Sinus: No maxillary sinus tenderness or frontal sinus tenderness. Mouth/Throat: Pharynx: Uvula midline. Tonsils: No tonsillar exudate or tonsillar abscesses. Neck: Vascular: No JVD. Cardiovascular: Heart sounds: Normal heart sounds. Comments: No CP or palpitations Pulmonary: Effort: Pulmonary effort is normal. No respiratory distress. Breath sounds: No stridor. No wheezing or rales. Comments: No SOB Abdominal: General: There is no distension. Tenderness: There is no abdominal tenderness. Comments: Central obesity Lymphadenopathy: Head: Right side of head: No submental, submandibular, tonsillar, preauricular or posterior auricular adenopathy. Left side of head: No submental, submandibular, tonsillar, preauricular or posterior auricular adenopathy. Cervical: No cervical adenopathy. Neurological: Mental Status: She is alert and oriented to person, place, and time. Psychiatric: Mood and Affect: Mood normal. Behavior: Behavior normal. Comments: Mild depression, no SI/HI/AH/VH Last Lab Results Health Maintenance Due HGB A1C (% NGSP) Date Value 09/08/2019 6.9 (H) POCT HBA1C (%) Date Value 03/19/2020 7.3 (A) There are no Diabetes related preventive care reminders to display. Previous Pneumococcal / Influenza Immunizations Name Date Influenza Virus Vaccine 08/27/2017 Influenza Virus Vaccine Quad ID [id number] 07/26/2016 Pneumococcal Polysaccharide, PPSV23 (PNEUMOVAX) 06/22/2017 Recent Morning Nanny Visits None Recent Ophthalmology Visits None CREATININE Date Value 01/27/2019 0.40 mg/dL (L) 03/27/2013 0.32 MG/DL (L) MICROALB U (ug/mL) Date Value 03/19/2020 7 CHOL (mg/dL) Date Value 01/27/2019 175 TRIG (mg/dL) Date Value 01/27/2019 86 LDL CHOL (mg/dL) Date Value 01/27/2019 96 Diabetes Relevant Medication Classes Last refreshed: 08/13/2020 10:02 AM: Prescribed BRIONNA inhibitor No Last refreshed: 08/13/2020 10:02 AM: Prescribed ARBs No Last refreshed: 08/13/2020 10:02 AM: Prescribed statins No Last refreshed: 08/13/2020 10:02 AM: Prescribed antiplatelets No Last refreshed: 08/13/2020 10:02 AM: Prescribed aspirin No Last refreshed: 08/13/2020 10:02 AM: On Fibrates No Current as of: 08/13/2020 10:02 AM Assessment/Plan Diabetes mellitus type II, non insulin dependent - Most recent A1c 6.2 >> 6.9 >> 7.3. Encouraged lifestyle and diet modification: lean meat, low fat, vegetables, nuts, low carb, increased fruits and exercise - metformin ER 500 mg 24 hr tablet; Take 1 tablet by mouth daily with breakfast. Dispense: 90 tablet; Refill: 1 - Future labs as ordered Essential hypertension, benign - Controlled, Goal < 140/90. Advised to adopt DASH diet plan Chronic obstructive pulmonary disease, unspecified COPD type - Stable, continue on Symbicort with Nebulization PRN, patient to follow-up with Pulmonary Medicine Current mild episode of major depressive disorder, unspecified whether recurrent - Stable, not in crisis, no SI/HI/AH/ - CONSULT/REFERRAL PSYCHOLOGY - EXTERNAL Need for influenza vaccination - FLU VACC([id number]), 6+ MONTHS, IM, QUAD (FLUZONE/FLULAVAL/FLUARIX); Future Preventive Care: Medication reconciliation, patient education and anticipatory guidance completed. All questions and concerns addressed. AVS given, handout provided. Return in about 3 months (around 11/13/2020), or if symptoms worsen or fail to improve. Collin Rodriguez MD, MPH, AAHIVS Clinical Television Parts Tester, Department of Family Medicine [facility] Primary & Specialty Care - [facility] 08/13/2020 10:14 AM A total of 16 minutes spent on the telephone with patient ULAR OFFICER documented in this encounter Plan of Treatment Date Type Specialty Care Team Description 11/16/2020 Office Visit Family Medicine Collin Rodriguez MD [address] [place] [address] Dr [place], [place] [address] [phone] 11/18/2020 Office Visit Pulmonary Disease Jenny Roman DO [address] [place] [phone] Name Type Priority Associated Diagnoses Order S chedule FLU IMMUNIZATION/INJ Routine Need for influenza Expec jair: VACC([id number]), ECTION vaccination 08/13/2020, Expires: 6+ MONTHS, IM, 08/13/2021 QUAD (FLUZONE/FLULAVAL /FLUARIX) Health Maintenance Due Date Last Done Comments COLON CANCER SCREENING 2009 ANNUAL FIT/FOBT COLON CANCER SCREENING FIT 2009 DNA EVERY 3 YEARS COLON CANCER SCREENING 2009 SIGMOIDOSCOPY EVERY 5 YEARS FOOT EXAM 09/02/2020 09/02/2019, 09/02/2019, 06/27/2018, Additional history exists Zoster Recombinant Vaccine 10/07/2020 02/01/2019 Postp oned from ([facility]) (2 of 2) 03/29/2019 ( Insurance / Financial) Depression Screening 02/09/2021 02/10/2020 HgA1C 02/13/2021 08/16/2020, 03/19/2020, 09/08/2019, Additional history exists EYE EXAM 02/16/2021 02/17/2020, 10/16/2018, 11/15/2016 (Previously completed) URINE MICROALBUMIN 03/19/2021 03/19/2020, 01/27/2019, 12/31/2017, Additional history exists PAP SMEAR 05/05/2021 05/05/2016, 11/24/2010, 02/25/2004 Breast Cancer Screening 05/11/2021 05/11/2020, 01/08/2019, (MAMMOGRAM) 07/02/2017, Additional history exists CREATININE (SERUM) 08/16/2021 08/16/2020, 01/27/2019, 12/31/2017, Additional history exists LDL-C 08/16/2021 08/16/2020, 01/27/2019, 12/31/2017, Additional history exists DTaP,Tdap,and Td Vaccines 12/19/2024 09/12/2015 Postpo ortiz from (1 - Tdap) 1978 (Alternative Guidelines) COLONOSCOPY 05/25/2026 05/25/2016 Colorectal Cancer Screening 05/25/2026 HEPATITIS C (HCV) SCREEN Completed 12/20/2016 PNEUMOCOCCAL 0-64 YEARS Completed 06/22/2017 COMBINED SERIES INFLUENZA VACCINE Completed 08/16/2020, 06/30/2019, 07/30/2018, Additional history exists LUNG CANCER SCREEN: Discontinued Recommended for age 55-80 with 30 + pack year history documented as of this encounter Results GLYCOSYLATED HEMOGLOBIN (A1C) (08/16/2020 10:17 AM CONSULAR OFFICER) Pathologist Sig nature HGB A1C 7.2 (H) 4.0 - 6.0 % [facility] Specimen Blood Narrative Performed At %A1C (NGSP) Interpretation (ADA) [facility] 4.8-5.6 Normal or (Non-Diabetic Ra nge) 5.7-6.4 Increased Risk (Pre-Diabet ic) >6.5 Diabetes Indicated Performing Organization Address City/State/Zipcode Phone Number [facility] CLIA: [id number] [place] [address] CBC WITH DIFF (08/16/2020 10:17 AM CONSULAR OFFICER) Pathologist Sig nature WBC 10.24 4.30 - 11.10 [facility] 10*3/L [facility] RBC 4.90 3.93 - 5.25 [facility] 10*6/L [facility] HGB 16.0 (H) 11.6 - 15.0 [facility] g/dL [facility] HCT 46.1 (H) 35.7 - 45.2 % [facility] MCV 94.1 80.6 - 95.5 fL [facility] MCH 32.7 25.9 - 32.8 pg [facility] MCHC 34.7 31.6 - 35.1 [facility] g/dL [facility] RDW-SD 40.8 39.0 - 49.9 fL [facility] RDW-CV 11.8 (L) 12.0 - 15.5 % [facility] PLT 194 166 - 358 [facility] 10*3/L [facility] MPV 12.4 9.5 - 12.9 fL [facility] NRBC/100 WBC 0.0 0.0 - 10.0 /100 [facility] WBCs [facility] NRBC x10^3 <0.01 10*3/L [facility] GRAN MAT (NEUT) % 55.8 % [facility] IMM GRAN % 0.40 % [facility] LYMPH % 34.4 % [facility] MONO % 7.5 % [facility] EOS % 1.4 % [facility] BASO % 0.5 % [facility] GRAN MAT x10^3(ANC) 5.72 1.88 - 7.09 [facility] 10*3/uL [facility] IMM GRAN x10^3 0.04 0.00 - 0.06 [facility] 10*3/uL [facility] LYMPH x10^3 3.52 (H) 1.32 - 3.29 [facility] 10*3/uL [facility] MONO x10^3 0.77 0.33 - 0.92 [facility] 10*3/uL [facility] EOS x10^3 0.14 0.03 - 0.39 [facility] 10*3/uL [facility] BASO x10^3 0.05 0.01 - 0.07 [facility] 10*3/uL [facility] Specimen Blood Performing Organization Address City/State/Zipcode Phone Number [facility] CLIA: [id number] [place] [address] documented in this encounter Visit Diagnoses Diagnosis Diabetes mellitus type II, non insulin d ependent - Primary Type II or unspecified type diabetes deb litus without mention of complication, not stated as uncontrolled Essential hypertension, benign Chronic obstructive pulmonary disease, u nspecified COPD type Current mild episode of major depressive disorder, unspecified whether recurrent Need for influenza vaccination Need for prophylactic vaccination and in oculation against influenza documented in this encounter Insurance Payer Benefit Plan / Subscriber ID Effective Dates Phone Addre ss Type Group [facility] [id number] 2016-Present Medicaid COMM PLAN - PLUS MANAGED MEDICAID documented as of this encounter
--- OUTSIDE RECORDS SUMMARY | 2020-09-25 12:18 | XMS REPORT | Summary of Care ---
:1960 Author Organization [facility] - [facility] Address [address] [place] [address] Care Team Providers Name Role Phone MD Alek Unavailable Praveena Luke MD Primary Care Provider Reason for Referral MRI/CAT Scan (STAT) Status Reason Specialty Diagnoses / Referred By Referred To Procedures Contact Contact New Request Diagnostic Diagnoses Epigastric pain Monica Cali Radiology Procedures CT ABDOMEN PELVIS W CONTRAST J, DO [address] [place] [address] Reason for Visit Reason Comments Abdominal Pain epigastric Auth/Cert Status Reason Specialty Diagnoses / Referred By Referred To Procedures Contact Contact Emergency Medicine [facility] ergency Dept [address] [place] [address] Fax: Encounter Details Date Type Department Care Team Description 08/29/2020 Emergency ADC-Emergency Depart ment Monica Cali DO Epigastric pain [address] [facility] [address] [place] [phone] [place] [phone] Allergies No Known Allergiesdocumented as of this encounter (statuses as of 08/29/2020) Medications Medication Sig Dispensed Refills Start Date [...] Seizures bedtime. mometasone (NASONEX) 50 Use 1 Hustler in 17 g 11 12/25/2017 Active mcg/actuation [...] mellitus type breakfast. II, non insulin dependent cyclobenzaprine 10 mg Take 1 tablet by 15 tablet 0 08/29/2020 Active tabletIndications: mouth 3 (three) Epigastric pain times daily as needed for Muscle Spasms. documented as of this encounter (statuses as of 08/29/2020) Active Problems Problem Noted Date Need for influenza vaccination 08/13/2020 Cough 10/17/2019 Essential hypertension, benign 06/23/2017 Obesity (BMI 30-39.9) 04/27/2017 Seizures 02/18/2016 Overview: Currently being managed by Dr. Sierra in [place] Depression 02/18/2016 Overview: Currently being managed by (Patient cannot remember name) Colon polyps 01/05/2016 Overview: Needs repeat colonoscopy in 3 years, [place] roximately December 2018. Abdominal pain 12/07/2015 cough 08/07/2015 Diet-controlled diabetes mellitus Chronic obstructive pulmonary disease, unspecified [employer] D type Overview: not following with utility teller. Asthma Overview: follows with Dr. Arambula in [place] documented as of this encounter (statuses as of 08/29/2020) Resolved Problems Problem Noted Date Resolved Date Abscess of abdominal wall 12/14/2015 05/26/2016 Bronchitis, allergic, mild persistent, with acute 08/07/2015 05/26/2016 exacerbation documented as of this encounter (statuses as of 08/29/2020) Immunizations Name Administration Dates Next Due Influenza [...] been in contact with No / Unsure 08/29/2020 1:38 PM ENTRY LEVEL SALES CONSULTANT someone who was confirmed or suspected to have Coronavirus / COVID-19? documented as of this encounter Last Filed Vital Signs Vital Sign Reading Time Taken Comments Blood Pressure 132/70 08/29/2020 4:00 PM ENTRY LEVEL SALES CONSULTANT Pulse 80 08/29/2020 4:00 PM ENTRY LEVEL SALES CONSULTANT Temperature 37.3 C (99.1 F) 08/29/2020 4:00 PM ENTRY LEVEL SALES CONSULTANT Respiratory Rate 17 08/29/2020 4:00 PM ENTRY LEVEL SALES CONSULTANT Oxygen Saturation 98% 08/29/2020 4:00 PM ENTRY LEVEL SALES CONSULTANT Inhaled Oxygen Concentration - - Weight 72.6 kg (160 lb) 08/29/2020 1:40 PM ENTRY LEVEL SALES CONSULTANT Height 167.6 cm (5' 6") 08/29/2020 1:40 PM ENTRY LEVEL SALES CONSULTANT Body Mass Index 25.82 08/29/2020 1:40 PM ENTRY LEVEL SALES CONSULTANT documented in this encounter Discharge Instructions Monica Mann DO - 08/29/2020DIAGNOSIS 1. Abdominal Pain NO LIFE-THREATENING FINDINGS ON TODAY'S EXAM. PROCEDURES IN THE ER TODAY: Blood work Urine test CT abdomen/pelvis MEDICATIONS ADMINISTERED IN THE ER TODAY: GI cocktail Pepcid Fentanyl Flexeril YOUR PRESCRIPTIONS AND NOVX-LDF-MOSBIMO MEDICATION RECOMMENDATIONS: None SPECIAL CARE INSTRUCTIONS: None FOLLOW-UP RECOMMENDATIONS: RECOMMEND FOLLOW-UP WITH A PRIMARY CARE PROVIDER OR SPECIALIST IN 2-5 DAYS, ESPECIALLY IF NO IMPROVEMENT IN SYMPTOMS. TO FOLLOW-UP WITHIN THE [facility], TRY THESE OPTIONS (CLINIC APPOINTMENTS AVAILABLE ON [id number] BASIS): 1. SCHEDULE AN APPOINTMENT ONLINE AT [email or web address] 2. OR CALL THE [facility] AT OR 3. OR CALL YOUR [facility] PHYSICIAN'S OFFICE DIRECTLY IF YOU ARE ALREADY AN ESTABLISHED [facility] PATIENT. OR, YOU MAY FOLLOW-UP WITH A PROVIDER OF YOUR CHOICE, SUCH : 1. A PHYSICIAN OF YOUR CHOICE 2. [facility], . LOCATIONS IN [facility] 3. [facility], [address] [place], [place]; [phone] RETURN TO ER FOR WORSENING OF SYMPTOMS. AttachmentsThe following attachments cannot be sent through Care Everywhere. Abdominal Pain, Adult (Hebrew)documented in this encounter ED Notes Arsenio Kim RN - 08/29/2020 1:39 PM CSTPatient started to have epigastric pain since last night. Declines nausea and vomiting. Rates apin . Denies SOB and chest pain Monica Whittaker DO - 08/29/2020 1:30 PM ENTRY LEVEL SALES CONSULTANT [facility] Emergency Department Note Patient Name: Ml Patino Date of : 1960 60 year old female Treatment [facility] Primary Care Physician: Clarisse Luke Patient Escorted by: Family [5] Mode of Arrival: Personal means [1] EMS Treatment Prior to ED Arrival: Travel and Exposure Screening: Symptoms Does patient have any of these symptoms?: (not recorded) Exposure Screening Has patient had contact with someone with a communicable disease in the last month?: (not recorded) Diseases exposed to:: (not recorded) Is Patient ?: (not recorded) Exposure Date: (not recorded) Chief Complaint: Chief Complaint Patient presents with Abdominal Pain epigastric History of Present Illness: Patient presents for eval for epigastric/RUQ pain since about 2200 yesterday. No n/v. No diarrhea.Thought it might be constipation so had some prune juice today followed by a BM but no change in pain. No dysuria. Had cheese dip yesterday for dinner around 1900 and then some soup today. Has h/o GB removal in the past as well as a . Has h/o DM and htn. Here for eval. Past Medical History/Immunizations: Past Medical History: Diagnosis Date Asthma follows with Dr. Arambula in [place] COPD (chronic obstructive pulmonary disease) not following with utility teller. Depression Diet-controlled diabetes mellitus Hypertension not on medications Seasonal allergies Seizures follows with neurologist Dr. Sierra in [place] Tetanus received in last 5 years: Unknown Childhood immunizations: Up-to-date Allergies: No Known Allergies Past Social History: Tobacco Use Former Smoker; Quit 02/17/2006; Smokes 0.1 packs/day; Smoked: Cigarettes. Smokeless Tobacco: Never used smokeless tobacco. Alcohol Use No. Drug Use No. Sexual Activity Not sexually active. Past Surgical History: Past Surgical History: Procedure Laterality Date SECTION CHOLECYSTECTOMY COLONOSCOPY N/A 12/28/2015 Surgeon: Iraj Naylor MD; [place] [facility] [place]/05/2016 INCISION AND DRAINAGE OF ABSCESS R abdomen RADICAL HYSTERECTOMY Review of Systems: Review of Systems Constitutional: Negative for chills and fever. Respiratory: Negative for shortness of breath. Cardiovascular: Negative for chest pain. Gastrointestinal: Positive for abdominal pain. Negative for nausea and vomiting. Genitourinary: Negative for dysuria. Musculoskeletal: Negative for arthralgias, neck pain and neck stiffness. Skin: Negative for wound. Neurological: Negative for dizziness. Psychiatric/Behavioral: Negative for agitation. Physical Exam: ED Triage Vitals [08/29/20 1340] Weight 72.6 kg (160 lb) Actual or estimated Estimated by patient/family report Height 1.676 m (5' 6") BP (!) 160/82 Pulse 96 Resp 18 Temp 37.6 C (99.6 F) Temp source Oral SpO2 99 % Measured on Room air Physical Exam Vitals signs and nursing note reviewed. Constitutional: Appearance: Normal appearance. She is obese. HENT: Head: Normocephalic and atraumatic. Neck: Musculoskeletal: Neck supple. Cardiovascular: Rate and Rhythm: Normal rate. Pulses: Normal pulses. Pulmonary: Effort: Pulmonary effort is normal. No respiratory distress. Abdominal: General: Abdomen is flat. Palpations: Abdomen is soft. Tenderness: There is abdominal tenderness (mild) in the right upper quadrant. There is no guarding or rebound. Negative signs include Amado's sign and McBurney's sign. Musculoskeletal: Normal range of motion. Skin: General: Skin is warm and dry. Neurological: General: No focal deficit present. Mental Status: She is alert. Radiology: Hospital Encounter on 08/29/20 CT ABDOMEN PELVIS W CONTRAST Narrative CT ABDOMEN PELVIS W CONTRAST HISTORY: 60 years-old; Female; Abd pain, acute, generalized COMPARISON: 05/09/2017 CT TECHNIQUE AND FINDINGS: Contiguous axial imaging from the level of the lung bases through the proximal thighs was performed after the uncomplicated administration of 120 cc of intravenous Omnipaque contrast. Coronal and sagittal reconstructions were obtained. Auto mA and/or iterative reconstruction were used to reduce radiation dose. FINDINGS: LOWER THORAX: The lung bases are clear. LIVER: No focal hepatic lesions. Normal contour. Hepatomegaly, measuring 20.0 cm, in the craniocaudal dimension. Diffuse hepatic hypoattenuation. GALLBLADDER AND BILIARY TREE: No intra or extrahepatic biliary ductal dilation. Mild dilatation of the proximal common bile duct is likely related to reservoir phenomenon from prior cholecystectomy, unchanged. There is no intrahepatic biliary ductal dilatation. SPLEEN: Unremarkable. PANCREAS: No ductal dilatation or masses ADRENAL GLANDS: No adrenal lesions. KIDNEYS: No hydronephrosis, stones, or masses. Homogeneous and symmetrical enhancement. GI TRACT: Small hiatal hernia is noted. No dilation or bowel wall thickening. The appendix is normal (2:100). PERITONEUM AND RETROPERITONEUM: No free air or fluid collection. LYMPH NODES: No intra-abdominal or pelvic lymph node enlargement. PELVIS/BLADDER: Bladder is fully distended with no wall thickening.The uterus is anteverted and retroflexed. Bilateral ovaries identified. VESSELS: Unremarkable BONES AND SOFT TISSUES: No suspicious lytic or sclerotic bony lesions. Mild degenerative changes affect the thoracolumbar spine. Impression 1. No acute intra-abdominal or pelvic abnormality to explain patient's symptoms. 2. Hepatic steatosis and hepatomegaly 3. Small hiatal hernia Preliminary Report Dictated by Resident: Alexander Wilson Lab Results (24h): Recent Results (from the past 24 hour(s)) Complete Metabolic Panel Collection Time: 08/29/20 1:53 PM Result Value Ref Range NA 129 (L) 135 - 145 mmol/L K 3.7 3.5 - 5.0 mmol/L CL 92 (L) 98 - 108 mmol/L CO2 TOTAL 26 23 - 31 mmol/L AGAP 11 2 - 16 BUN 5 (L) 7 - 23 mg/dL GLUCOSE 132 (H) 70 - 110 mg/dL CREATININE 0.44 (L) 0.50 - 1.04 mg/dL TOTAL BILI 0.5 0.1 - 1.1 mg/dL CALCIUM 9.9 8.6 - 10.6 mg/dL T PROTEIN 7.7 6.3 - 8.2 g/dL ALBUMIN 4.8 3.5 - 5.0 g/dL ALK PHOS 80 34 - 122 U/L ALTv 61 (H) 5 - 35 U/L AST(SGOT) 55 (H) 13 - 40 U/L eGFR Calculation (Non-) 145.4 mL/min/1.73m2 eGFR Calculation () 176.2 mL/min/1.73m2 CBC with Differential Collection Time: 08/29/20 1:53 PM Result Value Ref Range WBC 7.40 4.30 - 11.10 10*3/L RBC 4.71 3.93 - 5.25 10*6/L HGB 15.3 (H) 11.6 - 15.0 g/dL HCT 42.8 35.7 - 45.2 % MCV 90.9 80.6 - 95.5 fL MCH 32.5 25.9 - 32.8 pg MCHC 35.7 (H) 31.6 - 35.1 g/dL RDW-SD 38.9 (L) 39.0 - 49.9 fL RDW-CV 11.7 (L) 12.0 - 15.5 % PLT 162 (L) 166 - 358 10*3/L MPV 12.9 9.5 - 12.9 fL NRBC/100 WBC 0.0 0.0 - 10.0 /100 WBCs NRBC x10^3 <0.01 10*3/L GRAN MAT (NEUT) % 61.3 % IMM GRAN % 0.40 % LYMPH % 29.1 % MONO % 7.7 % EOS % 1.2 % BASO % 0.3 % GRAN MAT x10^3(ANC) 4.54 1.88 - 7.09 10*3/uL IMM GRAN x10^3 0.03 0.00 - 0.06 10*3/uL LYMPH x10^3 2.15 1.32 - 3.29 10*3/uL MONO x10^3 0.57 0.33 - 0.92 10*3/uL EOS x10^3 0.09 0.03 - 0.39 10*3/uL BASO x10^3 <0.03 0.01 - 0.07 10*3/uL Lipase, Serum Collection Time: 08/29/20 1:53 PM Result Value Ref Range LIPASE 68 0 - 220 U/L Urinalysis Collection Time: 08/29/20 1:53 PM Result Value Ref Range APPEARANCE Clear Clear COLOR Straw (A) Yellow PH 8.0 4.8 - 8.0 SP GRAVITY 1.003 1.003 - 1.030 GLU U QUAL Normal Normal BLOOD Negative Negative KETONES Negative Negative PROTEIN Negative Negative UROBILIN Normal Normal BILIRUBIN Negative Negative NITRITE Negative Negative LEUK THAIS Negative Negative RBC/HPF 0 0 - 3 HPF WBC/HPF 1 0 - 5 HPF BACTERIA Negative Negative SQ EPITH <1 HPF EKG: Nsr, no stemi, QTc 454, rate 85 Orders and Treatments: Orders Placed This Encounter Procedures CT ABDOMEN PELVIS W CONTRAST Complete Metabolic Panel CBC with Differential Lipase, Serum Urinalysis Orders Placed This Encounter Medications maalox:diphenhydrAMINE:lidocaine 2 % viscous 1:1:1 (FIRST-MOUTHWASH BLM) oral suspension 15 mL famotidine (PEPCID (PF)) injection 20 mg iohexol (OMNIPAQUE 350 BULK-150 mL) injection 113 mL FENTanyl PF (SUBLIMAZE (PF)) injection 50 mcg cyclobenzaprine (FLEXERIL) tablet 10 mg cyclobenzaprine 10 mg tablet ED COURSE patient presents for eval for RUQ/epigatric pain that started around 2200 yesterday. Has been constant since then. No n/v. Had cheese dip for dinner around 1900 yesterday. No diarrhea. Did have prune juice today followed by a BM afterwards. Has h/o GB removal in the past. VSS here in the Ec. Mild RUQ tenderness on exam. No rebound guarding. Negative Amado's sign. Will give pain meds - pepcid and GI cocktail. Will check labs and urine Will obtain CT a/p Anticipate discharge home later. 1520 - labs ok. UA clean. CT a/p shows no acute pathology. Patient is feeling better. Stable here in the eC and is ok for discharge home with PCP f/u. 1550 - now c/o pain to her back from the bed. Will give flexeril here and rx to go home with. MDM: Coding Scoring Tools: No data recorded Diagnosis/Impression: ICD-10-CM ICD-9-CM 1. Epigastric pain R10.13 789.06 Disposition/Condition: ED Disposition ED Disposition Condition Comment Disch - Home Stable Discharge Medications: Patient's Medications START taking these medications CYCLOBENZAPRINE 10 MG TABLET Take 1 tablet by mouth 3 (three) times daily as needed for Muscle Spasms. CONTINUE taking these medications which have NOT CHANGED ALBUTEROL 2.5 MG /3 ML (0.083 %) NEBULIZER SOLUTION Inhale 3 mL every 6 (six) hours as needed for Wheezing or Shortness of Breath. BLOOD SUGAR DIAGNOSTIC STRIP One Touch Ultra. Check blood sugar at least once daily E11.9 BUDESONIDE-FORMOTEROL (SYMBICORT) 160-4.5 MCG/ACTUATION INHALER Inhale 2 Puffs 2 (two) times daily. CARBAMAZEPINE 200 MG 12 HR TABLET Take 1 tablet by mouth at bedtime. CITALOPRAM 40 MG TABLET Take 1 tablet by mouth daily. CLONAZEPAM (KLONOPIN) 1 MG TABLET Take 1 mg by mouth 2 (two) times daily. FLUTICASONE 50 MCG/ACTUATION NASAL SPRAY Use 2 Sprays in each nostril daily. IBUPROFEN 600 MG TABLET Take 1 tablet by mouth every 6 (six) hours as needed for Pain (scale 4-6). IPRATROPIUM 0.02 % NEBULIZER SOLUTION Inhale 2.5 mL every 6 (six) hours as needed for Wheezing or Shortness of Breath. IPRATROPIUM 0.03 % NASAL SPRAY Use 2 Sprays in each nostril 3 (three) times daily. LANCETS (FREESTYLE LANCETS) [facility] Check blood sugar at least once daily. E11.9 LEVETIRACETAM 750 MG TABLET LORATADINE 10 MG TABLET TAKE ONE TABLET BY MOUTH DAILY MELOXICAM 7.5 MG TABLET Take 1 tablet by mouth daily. If not helping arthritis pain take 2 daily. METFORMIN ER 500 MG 24 HR TABLET Take 1 tablet by mouth daily with breakfast. MOMETASONE (NASONEX) 50 MCG/ACTUATION NASAL SPRAY Use 1 Hustler in each nostril daily. MONTELUKAST (SINGULAIR) 10 MG TABLET Take 1 tablet by mouth at bedtime. OMEPRAZOLE 40 MG CAPSULE TAKE ONE CAPSULE BY MOUTH DAILY TRIAMCINOLONE ACETONIDE 0.1 % OINTMENT Apply to area(s) 3 (three) times daily. START taking Modified Medications as Prescribed No medications on file STOP taking these medications No medications on file Follow-up: Electronically signed by: Monica Cali DO 08/29/2020 1:57 PM Y LEVEL SALES CONSULTANT documented in this encounter Miscellaneous Notes ED Nurse Note - Arsenio Kim RN - 08/29/2020 4:11 PM CSTDischarge teaching given. One prescription handed over. Patient verbalized understanding. Vitals stable. No acute distress noted. Patient ambulatory, awaiting patient ride. Patient will be wheeled out as and when patient ride arrived. Y LEVEL SALES CONSULTANT documented in this encounter Plan of Treatment Date Type Specialty Care Team Description 11/16/2020 Office Visit Family Medicine Collin Rodriguez MD [address] [place] [address] Dr [address] [place] [address] [phone] 11/18/2020 Office Visit Pulmonary Disease Jenny Roman DO [address] [place] [phone] Name Type Priority Associated Diagnoses Date/Ti me EKG-12 LEAD ROUTINE HEART STATION Routine Epigastric pain 08/09 1:44 PM ONCE ENTRY LEVEL SALES CONSULTANT CT ABDOMEN PELVIS W IMAGING STAT Epigastric pain 08/29 2:43 PM CONTRAST ENTRY LEVEL SALES CONSULTANT Name Type Priority Associated Diagnoses Order S chedule EKG-12 LEAD ROUTINE HEART STATION Routine Epigastric pain ONCE for 1 Occurrences ONCE starting 2019 until 0 Health Maintenance Due Date Last Done Comments [...] Name Priority Date/Time Associated Diagnosis Comme nts CT ABDOMEN PELVIS W STAT 08/29/2020 2:43 PM ENTRY LEVEL SALES CONSULTANT Epigastric pain CONTRAST Procedure Note - [facility], Radia nt Results Inft User - 08/29/2020 3:16 PM ENTRY LEVEL SALES CONSULTANT CT ABDOMEN PELVIS W CONTRAST HISTORY: 60 years-old; Femal e; Abd pain, acute, generalized COMPARISON: 05/09/2017 CT TECHNIQUE AND FINDINGS: Cont iguous axial imaging from the level of the lung bases through the proximal t highs was performed after the uncomplicated administration of 120 cc of intravenous Omnipaque contrast. Coronal and sagittal reconstructions wer e obtained. Auto mA and/or iterative reconstruction were used to reduce radiation dose. FINDINGS: LOWER THORAX: The lung bases are clear. LIVER: No focal hepatic lesi ons. Normal contour. Hepatomegaly, measuring 20.0 cm, in the craniocaudal dimension. Diffuse hepatic hypoattenuation. GALLBLADDER AND BILIARY TREE : No intra or extrahepatic biliary ductal dilation. Mild dilatation of the proximal common bile duct is likely related to reservoir phenome non from prior cholecystectomy, unchanged. There is no intrahepatic yuniel iary ductal dilatation. SPLEEN: Unremarkable. PANCREAS: No ductal dilatati on or masses ADRENAL GLANDS: No adrenal l esions. KIDNEYS: No hydronephrosis, stones, or masses. Homogeneous and symmetrical enhancement. GI TRACT: Small hiatal herni a is noted. No dilation or bowel wall thickening. The appendix is normal (2:100). PERITONEUM AND RETROPERITONE UM: No free air or fluid collection. LYMPH NODES: No intra-abdomi nal or pelvic lymph node enlargement. PELVIS/BLADDER: Bladder is f ully distended with no wall thickening.The uterus is anteverted and ret roflexed. Bilateral ovaries identified. VESSELS: Unremarkable BONES AND SOFT TISSUES: No s uspicious lytic or sclerotic bony lesions. Mild degenerative changes affect the thoracolumbar spine. IMPRESSION 1. No acute intra-abdominal or pelvic abnormality to explain patient's symptoms. 2. Hepatic steatosis and he patomegaly 3. Small hiatal hernia Preliminary Report Dictated by Resident: Alexander Wilson URINALYSIS STAT 08/29/2020 1:53 PM Epigastric pain Resul ts for this ENTRY LEVEL SALES CONSULTANT procedure are i n the results section. CBC WITH DIFF STAT 08/29/2020 1:53 PM Epigastric pain Resu lts for this ENTRY LEVEL SALES CONSULTANT procedure are i n the results section. COMP. METABOLIC PANEL STAT 08/29/2020 1:53 PM Epigastric p ain Results for this ([id number]) ENTRY LEVEL SALES CONSULTANT procedure are i n the results section. LIPASE STAT 08/29/2020 1:53 PM Epigastric pain Resul ts for this ENTRY LEVEL SALES CONSULTANT procedure are i n the results section. NOTICE OF PRIVACY Routine 08/29/2020 1:30 PM PRACTICES ENTRY LEVEL SALES CONSULTANT CONSENT/REFUSAL FOR Routine 08/29/2020 1:29 PM DIAGNOSIS AND ENTRY LEVEL SALES CONSULTANT TREATMENT documented in this encounter Results Urinalysis (08/29/2020 1:53 PM ENTRY LEVEL SALES CONSULTANT) Pathologist Sig nature APPEARANCE Clear Clear [facility] COLOR Straw (A) Yellow [facility] PH 8.0 4.8 - 8.0 [facility] SP GRAVITY 1.003 1.003 - 1.030 [facility] GLU U QUAL Normal Normal [facility] BLOOD Negative Negative [facility] KETONES Negative Negative [facility] PROTEIN Negative Negative [facility] UROBILIN Normal Normal [facility] BILIRUBIN Negative Negative [facility] NITRITE Negative Negative [facility] LEUK THAIS Negative Negative [facility] RBC/HPF 0 0 - 3 HPF [facility] WBC/HPF 1 0 - 5 HPF [facility] BACTERIA Negative Negative [facility] SQ EPITH <1 HPF [facility] Specimen Urine - URINE, CLEAN CATCH Performing Organization Address City/[facility]/Zipcode Phone Number [facility] CLIA: [id number] [place] [address] LABORATORY [address] Lipase, Serum (08/29/2020 1:53 PM ENTRY LEVEL SALES CONSULTANT) [facility] LIPASE 68 0 - 220 U/L [facility] Specimen Blood - VENOUS Performing Organization Address City/[facility] Cent[facility] Phone Number [facility] CLIA: [id number] [place] [address] LABORATORY [address] CBC with Differential (08/29/2020 1:53 PM ENTRY LEVEL SALES CONSULTANT) Pathologist [facility] WBC 7.40 4.30 - 11.10 [facility] 10*3/L [facility] RBC 4.71 3.93 - 5.25 [facility] 10*6/L [facility] HGB 15.3 (H) 11.6 - 15.0 [facility] g/dL [facility] HCT 42.8 35.7 - 45.2 % [facility] MCV 90.9 80.6 - 95.5 fL [facility] MCH 32.5 25.9 - 32.8 pg [facility] MCHC 35.7 (H) 31.6 - 35.1 [facility] g/dL [facility] RDW-SD 38.9 (L) 39.0 - 49.9 fL [facility] RDW-CV 11.7 (L) 12.0 - 15.5 % [facility] PLT 162 (L) 166 - 358 [facility] 10*3/L [facility] MPV 12.9 9.5 - 12.9 fL [facility] NRBC/100 WBC 0.0 0.0 - 10.0 /100 [facility] WBCs [facility] NRBC x10^3 <0.01 10*3/L [facility] GRAN MAT (NEUT) % 61.3 % [facility] IMM GRAN % 0.40 % [facility] LYMPH % 29.1 % [facility] MONO % 7.7 % [facility] EOS % 1.2 % [facility] BASO % 0.3 % [facility] GRAN MAT x10^3(ANC) 4.54 1.88 - 7.09 [facility] 10*3/uL [facility] IMM GRAN x10^3 0.03 0.00 - 0.06 [facility] 10*3/uL [facility] LYMPH x10^3 2.15 1.32 - 3.29 [facility] 10*3/uL [facility] MONO x10^3 0.57 0.33 - 0.92 [facility] 10*3/uL [facility] EOS x10^3 0.09 0.03 - 0.39 [facility] 10*3/uL [facility] BASO x10^3 <0.03 0.01 - 0.07 [facility] 10*3/uL [facility] Specimen Blood - VENOUS Performing Organization Address City/State/Zipcode Phone Number [facility] CLIA: [id number] [place] [address] Complete Metabolic Panel (08/29/2020 1:53 PM ENTRY LEVEL SALES CONSULTANT) NA 129 (L) 135 - 145 [facility] mmol/L [facility] K 3.7 3.5 - 5.0 [facility] mmol/L [facility] CL 92 (L) 98 - 108 mmol/L [facility] CO2 TOTAL 26 23 - 31 mmol/L [facility] AGAP 11 2 - 16 [facility] BUN 5 (L) 7 - 23 mg/dL [facility] GLUCOSE 132 (H) 70 - 110 mg/dL [facility] CREATININE 0.44 (L) 0.50 - 1.04 [facility] mg/dL [facility] TOTAL BILI 0.5 0.1 - 1.1 mg/dL [facility] CALCIUM 9.9 8.6 - 10.6 [facility] mg/dL [facility] T PROTEIN 7.7 6.3 - 8.2 g/dL [facility] ALBUMIN 4.8 3.5 - 5.0 g/dL [facility] ALK PHOS 80 34 - 122 U/L [facility] [place] 61 (H) 5 - 35 U/L [facility] AST(SGOT) 55 (H) 13 - 40 U/L [facility] eGFR Calculation 145.4 mL/min/1.73m2 [facility] [place] eGFR Calculation 176.2 mL/min/1.73m2 [facility] () [facility] Specimen Blood - VENOUS Narrative Performed At Association of Glomerular Filtration Rate (GFR) [facility] and Staging of Kidney Disease* + + +- + | GFR (mL/min/1.73 m2) | With Kidney Damage | Without Kidney Damage + + +- + | >90 | Stage one | Normal + + +- + | 60-89 | Stage two | Decreased GFR + + +- + | 30-59 | Stage three | Stage three + + +- + | 15-29 | Stage four | Stage four + + +- + | <15 (or dialysis) | Stage five | Stage five + + +- + *Each stage assumes the associated GFR level has been in effect for at least three months. Stages 1 to 5, with or without kidney disease, indicate chronic kidney disease. Notes: Determination of stages one and two (with eGFR >59mL/min/1.73 m2) requires estimation of kidney damage for at least three months as defined by structural or functional abnormalities of the kidney, manifested by either: Pathological abnormalities or Markers of kidney damage (including abnormalities in the composition of the blood or urine or abnormalities in imaging tests). Performing Organization Address City/State/Zipcode Phone Number [facility] CLIA: [id number] [place] [address] documented in this encounter Visit Diagnoses Diagnosis Epigastric pain Abdominal pain, epigastric documented in this encounter Administered Medications Medication Order MAR Action Action Date Dose Rate Site cyclobenzaprine (FLEXERIL) tablet Given 08/29/2020 3:59 PM ENTRY LEVEL SALES CONSULTANT 10 mg 10 mg 10 mg, Oral, ONCE, 1 dose, 08/29/20 at 1700, Routine famotidine (PEPCID (PF)) injection 20 mg Given 08/29/2020 2:04 PM ENTRY LEVEL SALES CONSULTANT 20 mg 20 mg, Slow IV Push, ONCE, 1 dose, 08/29/20 at 1500, CEC[place]LE FENTanyl PF (SUBLIMAZE (PF)) injection 50 Given 08/29/2020 3:59 PM ENTRY LEVEL SALES CONSULTANT 50 mcg mcg 50 mcg, Slow IV Push, ONCE, 1 dose, 08/29/20 at 1630, Routine iohexol (OMNIPAQUE 350 BULK-150 mL) Given 08/29/2020 2:41 PM CS T 113 mL injection 113 mL 113 mL, Intravenous, ONCE, 1 dose, 08/29/20 at 1445, Routine maalox:diphenhydrAMINE:lidocaine 2 % viscous Given 2:04 PM ENTRY LEVEL SALES CONSULTANT 15 mL 1:1:1 (FIRST-MOUTHWASH BLM) oral suspension 15 mL 15 mL, Oral, ONCE, 1 dose, 08/29/20 at 1400, CEC[place]LE documented in this encounter Insurance Payer Benefit Plan / Subscriber ID Effective Dates Phone Addre ss Type Group [facility] [id number] 2016-Present Medicaid COMM PLAN - PLUS MANAGED MEDICAID documented as of this encounter
--- OUTSIDE RECORDS SUMMARY | 2020-09-25 12:19 | XMS REPORT | Summary of Care ---
:1960 Author Organization [facility] Address [address] [place] [address] Care Team Providers Name Role Phone MD Alek Unavailable Praveena Luke MD Primary Care Provider Reason for Referral (Routine) Status Reason Specialty Diagnoses / Referred By Referred To Procedures Contact Contact Open Location Gastroenterology Diagnoses Hiatal hernia Roxann Luke Procedures CONSULT/REFERRAL GASTROENTEROLOGY Clarisse Grissom MD [address] [place] [address] Reason for Visit Reason Comments Results Encounter Details Date Type Department Care Team Description 09/06/2020 Telephone [facility] Pediatric and Janelle Luke, Astrid Adult Primary Care- MD Jones [address] [place] [address] [place] [address] [address] [place] [address] [place] [address] [phone] Allergies No Known Allergiesdocumented as of this encounter (statuses as of 09/07/2020) Medications Medication Sig Dispensed Refills Start Date End Date Status clonazePAM (KLONOPIN) Take 1 mg by 0 12/20/2015 Active 1 mg tablet mouth 2 (two) times daily. lancets (FREESTYLE Check blood 100 Each 11 09/26/2016 Active LANCETS) 28 gauge Misc sugar at least once daily. E11.9 blood sugar diagnostic One Touch Ultra. 100 Strip 3 12/21/2016 Active stripIndications: Check blood Diet-controlled sugar at least diabetes mellitus once daily E11.9 carBAMazepine 200 mg Take 1 tablet by 0 12/25/2017 Active 12 hr mouth at tabletIndications: bedtime. Seizures mometasone (NASONEX) Use 1 [place] in 17 g 11 12/25/2017 Active 50 mcg/actuation nasal each nostril sprayIndications: daily. Chronic seasonal allergic rhinitis, unspecified trigger triamcinolone Apply to 15 g 1 07/30/2018 Activ e acetonide 0.1 % area(s) 3 ointmentIndications: (three) times Dermatitis daily. fluticasone 50 Use 2 Sprays in 16 g 11 12/31/2018 Active mcg/actuation nasal each nostril sprayIndications: daily. Allergic rhinitis, unspecified seasonality, unspecified trigger montelukast Take 1 tablet by 30 tablet 11 12/31/2018 Active (SINGULAIR) 10 mg mouth at tabletIndications: bedtime. Allergic rhinitis, unspecified seasonality, unspecified trigger, Mild intermittent asthma without complication ipratropium 0.03 % Use 2 Sprays in 30 mL 3 09/02/2019 Active nasal each nostril 3 sprayIndications: (three) times Cough daily. ipratropium 0.02 % Inhale 2.5 mL [...] levETIRAcetam 750 mg 0 02/12/2020 Active tablet budesonide-formoteroL Inhale 2 Puffs 2 10.2 g 11 07/08/2020 Active (SYMBICORT) 160-4.5 (two) times mcg/actuation daily. inhalerIndications: Mild persistent asthma without complication cyclobenzaprine 10 mg Take 1 tablet by 15 tablet 0 08/29/2020 Active tabletIndications: mouth 3 (three) Epigastric pain times daily as needed for Muscle Spasms. pantoprazole 40 mg EC Take 1 tablet by 30 tablet 0 08/31/2020 09/30/2020 Active tabletIndications: mouth daily for Epigastric pain, Acute 30 days. gastritis without hemorrhage, unspecified gastritis type maalox/lidocaine 2 Take 10 mL by 240 mL 0 08/31/2020 Active %viscous 1:1 mouth every 4 suspension (four) hours as (COMPOUNDED)Indication needed s: Epigastric pain, (epigatric Acute gastritis burning). without hemorrhage, unspecified gastritis type pioglitazone 15 mg Take 1 tablet by 30 tablet 0 08/31/2020 Active tabletIndications: mouth daily for Type 2 diabetes 30 days. mellitus without complication, without long-term current use of insulin sucralfate (CARAFATE) Take 1 tablet by 60 tablet 0 08/31/2020 09/15/2020 Active 1 gram mouth before tabletIndications: meals and at Epigastric pain, Acute bedtime for 15 gastritis without days. hemorrhage, unspecified gastritis type documented as of this encounter (statuses as of 09/07/2020) Active Problems Problem Noted Date Need for influenza vaccination 08/13/2020 Cough 10/17/2019 Essential hypertension, benign 06/23/2017 Obesity (BMI 30-39.9) 04/27/2017 Seizures 02/18/2016 Overview: Currently being managed by Dr. Sierra in [facility] 02/18/2016 Overview: Currently being managed by (Patient cannot remember name) Colon polyps 01/05/2016 Overview: Needs repeat colonoscopy in 3 years, [place] roximately December 2018. 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 Asthma Overview: follows with Dr. 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 documented as of this encounter Last Filed Vital Signs Not on filedocumented in this encounter Miscellaneous Notes Telephone Encounter - Karen Abraham - 09/07/2020 9:42 AM CSTPatient requesting referral for GI Dr. kasper office. Scheduled for Sunday at 01:[address] results with ED. 1. No acute intra-abdominal or pelvic abnormality to explain patient's symptoms. 2. Hepatic steatosis and hepatomegaly 3. Small hiatal hernia Karen Abraham 09/07/2020 9:43 AM elephone Encounter - Karen Abraham - 09/06/2020 9:37 AM CSTContacted patient to advise of lab results. Patient verbalized understanding of results and all instructions given. See note recorded below by provider. Labs are within normal limits except for -liver enzymes much improved. Patient requesting a referral due to Hiatal hernia. Karen Abraham 09/06/2020 9:38 AM documented in this encounter Plan of Treatment Date Type Specialty Care Team Description 10/14/2020 Office Visit Family Medicine Collin Rodriguez MD [address] [place] [address] Dr [address] [place], [place] [address] [phone] 11/16/2020 Office Visit Family Medicine Collin Rodriguez MD [address] [place] [address] Dr [place], [place] [address] [phone] 11/18/2020 Office Visit Pulmonary Disease Jenny Roman, DO [facility] [place] [phone] Health Maintenance Due Date Last Done Comments [...] 05/11/2020, 01/08/2019, (MAMMOGRAM) 07/02/2017, Additional history exists LDL-C 08/16/2021 08/16/2020, 01/27/2019, 12/31/2017, Additional history exists CREATININE (SERUM) 08/31/2021 08/31/2020, 08/29/2020, 08/16/2020, Additional history exists DTaP,Tdap,and Td Vaccines 12/19/2024 [...] filedocumented in this encounter Visit Diagnoses Diagnosis Hiatal hernia - Primary Diaphragmatic hernia without mention of obstruction or gangrene documented in this encounter Insurance Payer Benefit Plan / Subscriber ID Effective Dates Phone Addre ss Type Group [facility] [id number] 2016-Present Medicaid COMM PLAN - PLUS MANAGED MEDICAID documented as of this encounter
--- OUTSIDE RECORDS SUMMARY | 2020-09-25 12:19 | XMS REPORT | Summary of Care ---
:1960 Author Organization [facility] Address [address] [place] [address] Care Team Providers Name Role Phone MD Alek Unavailable Praveena Luke MD Primary Care Provider Reason for Referral (Routine) Status Reason Specialty Diagnoses / Referred By Referred To Procedures Contact Contact Open Location Gastroenterology Diagnoses Hiatal hernia Roxann Luke Procedures CONSULT/REFERRAL GASTROENTEROLOGY Clarisse Grissom MD [address] [place] [address] Reason for Visit Reason Comments Results Encounter Details Date Type Department Care Team Description 09/06/2020 Telephone [facility] Pediatric and Janelle Luke, Astrid Adult Primary Care- MD Jones [address] [place] [address] [place] [address] [address] [place] [address] [place] [address] [phone] Allergies No Known Allergiesdocumented as of this encounter (statuses as of 09/10/2020) Medications Medication Sig Dispensed Refills Start Date [...] tabletIndications: bedtime. Seizures mometasone (NASONEX) Use 1 [place] in 17 g 11 12/25/2017 Active 50 [...] as of this encounter (statuses as of 09/10/2020) Active Problems Problem Noted Date Need for influenza vaccination 08/13/2020 Cough 10/17/2019 Essential hypertension, benign 06/23/2017 Obesity (BMI 30-39.9) 04/27/2017 Seizures 02/18/2016 Overview: Currently being managed by Dr. Sierra in [facility] 02/18/2016 Overview: Currently being managed by (Patient cannot remember name) Colon polyps 01/05/2016 Overview: Needs repeat colonoscopy in 3 years, [place] roximately December 2018. 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 Asthma Overview: follows with Dr. 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 [id number] 2019-Present Medicaid COMM PLAN - PLUS MANAGED MEDICAID documented as of this encounter
--- OUTSIDE RECORDS SUMMARY | 2020-09-25 12:19 | XMS REPORT | Summary of Care ---
:1960 Author Organization [facility] Address [address] [place] [address] Care Team Providers Name Role Phone MD Alek Unavailable Praveena Traore MD Primary Care Provider Reason for Referral (Routine) Status Reason Specialty Diagnoses / Procedures Referred By Belkis sam To Contact Contact New Request IM-GASTROENTEROL Diagnoses Epigastric pain Acute gastritis without hemorrhage, unspecified gastritis type Hepatomegaly Transaminitis Nonalcoholic hepatosteatosis Alyson Leong Procedures Discharge Follow-Up: Specialty Service IM-GASTROENTEROLOGY; 1 Week IMER Zendejas [address] [facility] [id number] [place] [address] (Routine) Status Reason Specialty Diagnoses / Referred By Referred To Procedures Contact Contact New Request Diagnoses Obesity (BMI 30-39.9) Essential hypertension, benign Type 2 diabetes mellitus without complication, without long-term current use of insulin Alyson Leong Jaramillo, Procedures Discharge Follow-up: PCP YODIT TRAORE; 1 Week IMER Grissom MD [address] [facility] [id number] [facility] [place] [address] Phone: Radiology Services (STAT) Status Reason Specialty Diagnoses / Referred By Referred To Procedures Contact Contact New Request Diagnostic Diagnoses Epigastric pain Alyson Leong Radiology Procedures Chest 1 View G, CONTROL OPERATOR [id number] [place] [address] Reason for Visit Reason Comments Epigastric Pain Auth/Cert Status Reason Specialty Diagnoses / Referred By Referred To Procedures Contact Contact Emergency Medicine Ad[facility] Em ergency Dept [address] [place] [address] Fax: Encounter Details Date Type Department Care Team Description 08/31/2020 Emergency ADC-Emergency Drever, Alyson G, Epigastri c pain (Primary Dx); Department CONTROL OPERATOR Obesity (BMI 30-39.9); [address] [place] [address] Essential hypertension, benign; Drive [id number] Type 2 diabetes mellitus without complic ation, without long-term current use of insulin; [place] [address] [place], [place] Acute gastritis without hemo rrhage, unspecified gastritis type; [phone] [id number] Hepatomegaly; [phone] Transaminitis; [phone] Nonalcoholic he patosteatosis (Fax) Allergies No Known Allergiesdocumented as of this encounter (statuses as of 08/31/2020) Medications Medication Sig Dispensed Refills Start Date End Date Status clonazePAM (KLONOPIN) Take 1 mg by 0 12/20/2015 Active 1 mg tablet mouth 2 (two) times daily. lancets (FREESTYLE Check blood 100 Each 11 09/26/2016 Active LANCETS) 28 gauge sugar at least Misc once daily. E11.9 blood sugar One Touch 100 Strip 3 12/21/2016 Active diagnostic Ultra. Check stripIndications: blood sugar at Diet-controlled least once diabetes mellitus daily E11.9 carBAMazepine 200 mg Take 1 tablet 0 12/25/2017 Active 12 hr by mouth at tabletIndications: bedtime. Seizures mometasone (NASONEX) Use 1 [place] in 17 g 11 12/25/2017 Active 50 mcg/actuation each nostril nasal daily. sprayIndications: Chronic seasonal allergic rhinitis, unspecified trigger triamcinolone Apply to 15 g 1 07/30/2018 Activ e acetonide 0.1 % area(s) 3 ointmentIndications: (three) times Dermatitis daily. fluticasone 50 Use 2 Sprays 16 g 11 12/31/2018 A ctive mcg/actuation nasal in each sprayIndications: nostril daily. Allergic rhinitis, unspecified seasonality, unspecified trigger montelukast Take 1 tablet 30 tablet 11 12/31/2018 Act ivan (SINGULAIR) 10 mg by mouth at tabletIndications: bedtime. Allergic rhinitis, unspecified seasonality, unspecified trigger, Mild intermittent asthma without complication ipratropium 0.03 % Use 2 Sprays 30 mL 3 09/02/2019 Active nasal in each sprayIndications: nostril 3 Cough (three) times daily. ipratropium 0.02 % Inhale 2.5 mL 60 Vial 3 10/17/2019 Active nebulizer every 6 (six) solutionIndications: hours as Chronic obstructive needed for pulmonary disease, Wheezing or unspecified COPD type Shortness of Breath. albuterol 2.5 mg /3 Inhale 3 mL 60 Vial 6 10/17/2019 Active mL (0.083 %) every 6 (six) nebulizer hours as solutionIndications: needed for Chronic obstructive Wheezing or pulmonary disease, Shortness of unspecified COPD type Breath. LORATADINE 10 mg TAKE ONE 90 tablet 3 12/24/2019 Ac tive tabletIndications: TABLET BY Allergic rhinitis, MOUTH DAILY unspecified seasonality, unspecified trigger meloxicam 7.5 mg Take 1 tablet 60 tablet 3 02/25/2020 Active tabletIndications: by mouth Arthritis daily. If not helping arthritis pain take 2 daily. levETIRAcetam 750 mg 0 02/12/2020 Active tablet budesonide-formoteroL Inhale 2 Puffs 10.2 g 11 07/08/2020 Active (SYMBICORT) 160-4.5 2 (two) times mcg/actuation daily. inhalerIndications: Mild persistent asthma without complication cyclobenzaprine 10 mg Take 1 tablet 15 tablet 0 08/29/2020 Active tabletIndications: by mouth 3 Epigastric pain (three) times daily as needed for Muscle Spasms. pantoprazole 40 mg EC Take 1 tablet 30 tablet 0 08/31/2020 Active tabletIndications: by mouth daily 20 Epigastric pain, for 30 days. Acute gastritis without hemorrhage, unspecified gastritis type maalox/lidocaine 2 Take 10 mL by 240 mL 0 08/31/2020 Active %viscous 1:1 mouth every 4 suspension (four) hours (COMPOUNDED)Indicatio as needed ns: Epigastric pain, (epigatric Acute gastritis burning). without hemorrhage, unspecified gastritis type pioglitazone 15 mg Take 1 tablet 30 tablet 0 08/31/2020 Active tabletIndications: by mouth daily 20 Type 2 diabetes for 30 days. mellitus without complication, without long-term current use of insulin sucralfate (CARAFATE) Take 1 tablet 60 tablet 0 08/31/202006/27 Active 1 gram by mouth 20 tabletIndications: before meals Epigastric pain, and at bedtime Acute gastritis for 15 days. without hemorrhage, unspecified gastritis type ibuprofen 600 mg Take 1 tablet 20 tablet 0 02/27/2020 08/31/20 Discontinued tabletIndications: by mouth every 20 Sore throat 6 (six) hours as needed for Pain (scale 4-6). citalopram 40 mg Take 1 tablet 0 03/19/2020 08/31/20 Discontinued tabletIndications: by mouth 20 Depression, daily. unspecified depression type OMEPRAZOLE 40 mg TAKE ONE 30 capsule 9 04/26/2020 08/31/20 D iscontinued capsuleIndications: CAPSULE BY 20 Gastroesophageal MOUTH DAILY reflux disease, esophagitis presence not specified metformin ER 500 mg Take 1 tablet 90 tablet 1 08/13/202008/31 Discontinued 24 hr by mouth daily 20 tabletIndications: with Diabetes mellitus breakfast. type II, non insulin dependent documented as of this encounter (statuses as of 08/31/2020) Active Problems Problem Noted Date Need for influenza vaccination 08/13/2020 Cough 10/17/2019 Essential hypertension, benign 06/23/2017 Obesity (BMI 30-39.9) 04/27/2017 Seizures 02/18/2016 Overview: Currently being managed by Dr. Sierra in [place] Depression 02/18/2016 Overview: Currently being managed by (Patient cannot remember name) Colon polyps 01/05/2016 Overview: Needs repeat colonoscopy in 3 years, [place] roximately December 2018. Abdominal pain 12/07/2015 cough 08/07/2015 Diet-controlled diabetes mellitus Chronic obstructive pulmonary disease, unspecified MARKETING PROJECT MANAGER D type Overview: not following with health underwriter. Asthma Overview: follows with Dr. Arambula in [place] documented as of this encounter (statuses as of 08/31/2020) Resolved Problems Problem Noted Date Resolved Date Abscess of abdominal wall 12/14/2015 05/26/2016 Bronchitis, allergic, mild persistent, with acute 08/07/2015 05/26/2016 exacerbation documented as of this encounter (statuses as of 08/31/2020) Immunizations Name Administration Dates Next Due Influenza Virus Vaccine 08/27/2017 Influenza Virus Vaccine Quad .5 mL IM 6+ MO 08/16/2020, 07/09 Influenza Virus Vaccine Quad ID 18-64 YRS 07/26/2016 Influenza Virus Vaccine Recomb Quad IM, Preserv and 06/30/20 ABX Free 18-64 YRS Pneumococcal Polysaccharide, PPSV23 [...] with No / Unsure 08/31/2020 10:16 AM LOCAL DRIVER someone who was confirmed or suspected to have Coronavirus / COVID-19? documented as of this encounter Last Filed Vital Signs Vital Sign Reading Time Taken Comments Blood Pressure 121/65 08/31/2020 1:45 PM LOCAL DRIVER Pulse 77 08/31/2020 1:45 PM LOCAL DRIVER Temperature 37.2 C (99 F) 08/31/2020 10:26 AM LOCAL DRIVER Respiratory Rate 18 08/31/2020 1:45 PM LOCAL DRIVER Oxygen Saturation 99% 08/31/2020 1:45 PM LOCAL DRIVER Inhaled Oxygen Concentration - - Weight 72.6 kg (160 lb) 08/31/2020 10:26 AM LOCAL DRIVER Height - - Body Mass Index 25.82 08/29/2020 1:40 PM LOCAL DRIVER documented in this encounter Discharge Instructions Alyson Nuñez NP - 08/31/2020Diagnosis: Epigastric pain Gastritis Diabetes stop the metformin and prilosec start actos, protonix, GI cocktail , and Carafate all sent to her [facility] pharmacy. Referral's sent for PCP and GI follow up this coming week. Return to ED is onset of vomiting blood or blood in stool, dark tarry or black foul smelling stool,or any new concern continue to monitor her blood glucose levels at home and record. Take data with you to your PCP appointment. Recommend bland diet until seen by GI. AttachmentsThe following attachments cannot be sent through Care Everywhere. Liver Disease, Tests (Emirati)Gastritis (Adult) (Emirati)Liver Disease, Nonlcoholic Fatty (NAFLD) (Emirati)documented in this encounter ED Notes Joyce Adams RN - 08/31/2020 10:24 AM CSTEpigastric burning x2 days. States she was here for same symptoms two days with abdominal workup andeverything was negative. She came back because the pain hasn't gone away. Pain is worsened after sheeats and is described as burning. She was diagnosed with hiatal hernia two days ago. She called GI but was unable to get appointment due to holidays. She takes omeprazole but has no relief. documented in this encounter Miscellaneous Notes ED Nurse Note - Debbie Cook RN - 08/31/2020 1:51 PM CSTPt given printed and verbal discharge instructions regarding Epigastric pain, Acute gastritis, Hepatomegaly encouraged hydration, Prescriptions provided Pantoprazole Maalox/lidocaine 2% viscous 1:1 Pioglitazone Sucralfate Discussed ibuprofen and to take with food to avoid GI distress. Pt verbalized understanding of instructions, pt awake alert oriented, resp reg unlabored, skin w/d, color appropriate for race, moves all ext well,pt encouraged to follow up with pcp and GI within 1 week. Advised to seek medical attention for new/prolonged/worsening of symptoms, Symptoms increase pain, any signs of infection, fever over 100.4 No adverse reaction to meds given in ER noted upon discharge PIV d'cd, dressing to site, catheter in tact. Awake, alert oriented, resp reg unlabored, skin w/d, pt leaving amb with steady gait, in no apparent distress, L DRIVER documented in this encounter Plan of Treatment Date Type Specialty Care Team Description 11/16/2020 Office Visit Family Medicine Collin Rodriguez MD [address] [place] [address] Dr [address] [place] [address]75 [phone] 11/18/2020 Office Visit Pulmonary Disease Jenny Roman DO [address] [place] [id number] Name Type Priority Associated Diagnoses Date/Ti me EKG-12 LEAD ROUTINE ONCE HEART STATION STAT Epigastric pain 08/31/2020 10:46 AM LOCAL DRIVER LAB ONLY COVID LAB STAT Epigastric pain 08/31/2020 12:02 INTERPRETATION PM LOCAL DRIVER Name Type Priority Associated Order Schedule Diagnoses EKG-12 LEAD ROUTINE HEART STATION STAT Epigastric pain ONCE for 1 ONCE Occurrences sta rting 08/31/2020 unti l 08/31/2020 LAB ONLY COVID LAB Routine Epigastric pain ONCE for 1 INTERPRETATION Occurrences s tarting 08/31/2020 unti l 08/31/2020 Health Maintenance Due Date Last Done Comments [...] 01/27/2019, 12/31/2017, Additional history exists CREATININE (SERUM) 08/29/2021 08/29/2020, 08/16/2020, 01/27/2019, Additional history exists DTaP,Tdap,and Td Vaccines 12/19/2024 [...] Name Priority Date/Time Associated Diagnosis Comme nts COVID-19 (ID NOW STAT 08/31/2020 12:02 PM Epigastric pain R esults for this RAPID TESTING) LOCAL DRIVER procedure are in the results section. XR CHEST 1 VW STAT 08/31/2020 11:04 AM Epigastric pain Resu lts for this LOCAL DRIVER procedure are i n the results section. CBC WITH DIFF STAT 08/31/2020 10:47 AM Epigastric pain Resu lts for this LOCAL DRIVER procedure are i n the results section. BASIC METABOLIC STAT 08/31/2020 10:47 AM Epigastric pain Re sults for this PANEL (NA, K, CL, LOCAL DRIVER procedure are in CO2, GLUCOSE, BUN, the resul ts CREATININE, CA) section. HEPATIC FUNCTION STAT 08/31/2020 10:47 AM Epigastric pain R esults for this PANEL ([address]) LOCAL DRIVER procedure are in (ALB,T.PRO,BILI the results T,BU/BC,ALT,AST,ALK section. PHOS) TROPONIN I STAT 08/31/2020 10:47 AM Epigastric pain Resul ts for this LOCAL DRIVER procedure are i n the results section. LIPASE STAT 08/31/2020 10:47 AM Epigastric pain Resul ts for this LOCAL DRIVER procedure are i n the results section. CONSENT/REFUSAL FOR Routine 08/31/2020 10:16 AM DIAGNOSIS AND LOCAL DRIVER TREATMENT documented in this encounter Results COVID-19 (ID NOW RAPID TESTING) (08/31/2020 12:02 PM LOCAL DRIVER) SARS-CoV-2 Rapid ID Not Detected Not Detected [facility] Specimen Swab - NASOPHARYNGEAL SWAB Narrative Performed At [facility] COVID-19 Assay is an isothermal nucleic [facility] acid amplification test intended for the qualitative detection of nucleic acid from SARS-CoV-2 viral RNA in nasopharyngeal (CONTROL OPERATOR) specimens. It is used under Emergency Use Authorization (EUA) by FDA. The limit of detection (LOD) of the assay is 125 Genome Equivalents/mL. A positive result is indicative of the presence of SARS-CoV-2 RNA. Clinical correlation with patient history and other diagnostic information is necessary to determine patient infection status. A negative (Not Detected) result does not preclude SARS-CoV-2 infection. In patients with clinical symptoms and other tests that are consistent with SARS-CoV-2 infection, negative results should be treated as presumptive negative and a new specimen should be tested with alternative PCR molecular test. Invalid: Please collect a new specimen for repeat patient testing if clinically indicated. Performing Organization Address City/[facility]/Zipcode Phone Number [facility] CLIA: [id number] [place] [address] Chest 1 View (08/31/2020 11:04 AM LOCAL DRIVER) Specimen Narrative Performed At HISTORY: Epigastric pain. PACS/VR/DOSE TECHNIQUE: Portable AP erect view of the chest is obta ined. Comparison made with 08/17/2018 study. FINDINGS: No acute pneumonia. No pneumot horax or pleural effusion or pulmonary congestion detected. Cardiac size is within normal limits. Mild thoracolumbar scoliosis with degenerativ e spondylosis is noted. CONCLUSIONS: No signs of acute cardiopulmonary disease . Procedure Note [facility], Radiant Results Inft User - 2019 11:07 AM LOCAL DRIVER HISTORY: Epigastric pain. TECHNIQUE: Portable AP erect view of the chest is obtained. Comparison made with 08/17/2018 study. FINDINGS: No acute pneumonia. No pneumot horax or pleural effusion or pulmonary congestion detected. Cardiac s ize is within normal limits. Mild thoracolumbar scoliosis with degenerativ e spondylosis is noted. CONCLUSIONS: No signs of acute cardiopul monary disease. Performing Organization Address City/State/Zipcode Phone Number PACS/VR/DOSE Troponin I (08/31/2020 10:47 AM LOCAL DRIVER) Pathologist Sig nature TROPONIN I <0.012 <=0.034 ng/mL [facility] Specimen Blood - ARM, RIGHT Narrative Performed At Equal or Less than 0.034 ng/ml---Normal [facility] Note: Cardiac troponin begins to rise 3-4 hours after the onset of ischemia. Repeat in 4-6 hours if the sample was drawn within 3-4 hours of the onset of the symptom and found normal. Between 0.035 and 0.120 ng/mL--- Borderline. Questionable myocardial injury or necros is Note: Serial measurement may be necessary to confirm or exclude the diagnosis of myocardial injury or necrosis; Clinical correlation (symptoms, EKGs, imaging studies, and others) required; Repeat in 4-6 hours if clinically indicated. Equal or Higher than 0.121 ng/mL---Abnormal. Myocardial Injury or Necrosis Likely Biotin has been reported to cause a negative bias, interpret results relative to patient's use of biotin. Performing Organization Address [facility] Phone Number [facility] CLIA: [id number] [place] [address] [place] [address] Lipase Serum (08/31/2020 10:47 AM LOCAL DRIVER) Pathologist Sig nature LIPASE 70 0 - 220 U/L [facility] Specimen Blood - ARM, RIGHT Performing Organization Address [facility] Phone Number [facility] CLIA: [id number] [place] [address] LABORATORY [address] [facility] Hepatic Function Panel (ALB, T.PRO, BILI T, BU/BC, ALT, AST, ALK PHOS) (08/31/2020 10:47 AM LOCAL DRIVER) Pathologist Sig nature TOTAL BILI 0.5 0.1 - 1.1 mg/dL [facility] BILI UNCON 0.4 0.1 - 1.1 mg/dL [facility] BILI CONJ 0.0 0.0 - 0.3 mg/dL [facility] T PROTEIN 8.2 6.3 - 8.2 g/dL [facility] ALBUMIN 5.1 (H) 3.5 - 5.0 g/dL [facility] ALK PHOS 77 34 - 122 U/L [facility] ALTv 74 (H) 5 - 35 U/L [facility] AST(SGOT) 62 (H) 13 - 40 U/L [facility] Specimen Blood - ARM, RIGHT Performing Organization Address City/State/Zipcode Phone Number [facility] CLIA: [id number] [place] [address] Basic Metabolic Panel (NA, K, CL, CO2, GLUCOSE, BUN, CREATININE, CA) (08/31/2020 10:47 AM LOCAL DRIVER) NA 133 (L) 135 - 145 [facility] mmol/L [facility] K 4.1 3.5 - 5.0 [facility] mmol/L [facility] CL 97 (L) 98 - 108 mmol/L [facility] CO2 TOTAL 25 23 - 31 mmol/L [facility] AGAP 11 2 - 16 [facility] BUN 7 7 - 23 mg/dL [facility] GLUCOSE 167 (H) 70 - 110 mg/dL [facility] CREATININE 0.46 (L) 0.50 - 1.04 [facility] mg/dL [facility] CALCIUM 10.0 8.6 - 10.6 [facility] mg/dL [facility] eGFR Calculation 138.1 mL/min/1.73m2 [facility] (Non-[facility] LABORATORY [place]alese) eGFR Calculation 167.4 mL/min/1.73m2 [facility] () [facility] Specimen Blood - ARM, RIGHT Narrative Performed At Association of Glomerular Filtration Rate (GFR) [facility] and Staging of Kidney Disease* + [...] tests). Performing Organization Address City/State/Zipcode Phone Number [facility] CLIA: [id number] [place] [address] CBC with Differential (08/31/2020 10:47 AM LOCAL DRIVER) WBC 9.20 4.30 - 11.10 [facility] 10*3/L [facility] RBC 4.98 3.93 - 5.25 [facility] 10*6/L [facility] LAB[facility] HGB 16.3 (H) 11.6 - 15.0 [facility] g/dL [facility] HCT 46.0 (H) 35.7 - 45.2 % [facility] MCV 92.4 80.6 - 95.5 [facility] LABORATORY MCH 32.7 25.9 - 32.8 [facility] LABORATORY MCHC 35.4 (H) 31.6 - 35.1 [facility] g/dL [facility] RDW-SD 39.8 39.0 - 49.9 [facility] LABORATORY RDW-CV 11.9 (L) 12.0 - 15.5 % [facility] PLT 247 166 - 358 [facility] 10*3/L [facility] LAB[facility]ORY MPV 12.4 9.5 - 12.9 fL [facility] LAB[facility] IPF % 6.1Comment: Platelet 1.3 - 7.7 % [facility] count measured by HOSPITAL fluorescence method. LABORATORY NRBC/100 WBC 0.0 0.0 - 10.0 [facility] /100 WBCs [facility] LAB[facility] NRBC x10^3 <0.01 10*3/L [facility] GRAN MAT (NEUT) % 80.0 % [facility] IMM GRAN % 0.30 % [facility] LYMPH % 14.2 % [facility] MONO % 5.1 % [facility] EOS % 0.1 % [facility] BASO % 0.3 % [facility] GRAN MAT 7.35 (H) 1.88 - 7.09 [facility] x10^3(ANC) 10*3/uL HOSPITAL LABORATORY IMM GRAN x10^3 0.03 0.00 - 0.06 [facility] 10*3/uL HOSPITAL LABORATORY LYMPH x10^3 1.31 (L) 1.32 - 3.29 [facility] 10*3/uL [facility] MONO x10^3 0.47 0.33 - 0.92 [facility] 10*3/uL [facility] LAB[facility] EOS x10^3 <0.03 (L) 0.03 - 0.39 [facility] 10*3/uL [facility] LAB[facility] BASO x10^3 0.03 0.01 - 0.[address]/uL [facility] Specimen Blood - ARM, RIGHT Performing Organization Address City/State/Zipcode Phone Number [facility] CLIA: [id number] [place], [place] [id number] LABORATORY [address] documented in this encounter Visit Diagnoses Diagnosis Epigastric pain - Primary Abdominal pain, epigastric Obesity (BMI 30-39.9) Obesity, unspecified Essential hypertension, benign Type 2 diabetes mellitus without complic ation, without long-term current use of insulin Acute gastritis without hemorrhage, unsp ecified gastritis type Hepatomegaly Transaminitis Nonspecific elevation of levels of trans aminase or lactic acid dehydrogenase (LDH) Nonalcoholic hepatosteatosis Other chronic nonalcoholic liver disease documented in this encounter Administered Medications Medication Order MAR Action Action Date Dose Rate Site maalox:diphenhydrAMINE:lidocaine 2 Given 08/31/2020 10:53 AM LOCAL DRIVER 15 mL % viscous 1:1:1 (FIRST-MOUTHWASH BLM) oral suspension 15 mL 15 mL, Oral, ONCE, 1 dose, 08/31/20 at 1145, Routine NaCl 0.9% (NS) bolus infusion New Bag 08/31/2020 10:55 AM LOCAL DRIVER 1,000 mL 999 mL/hr 1,000 mL at 999 mL/hr, 1,000 mL, IV Infusion, ONCE, 1 dose, 08/31/20 at 1100, [place] sucralfate (CARAFATE) tablet 1 g Given 08/31/2020 10:53 AM LOCAL DRIVER 1 g 1 g, Oral, ONCE NOW, 1 dose, 08/31/20 at 1200, Routine documented in this encounter Additional Health Concerns Infection Onset Date Last Indicated Resolved Time COVID-19 Rule Out 08/31/2020 08/31/2020 08/31/2020 12: 36 PM LOCAL DRIVER documented as of this encounter Insurance Payer Benefit Plan / Subscriber ID Effective Dates Phone Addre ss Type Group [facility] ST[facility] [id number] 2020-[place] Medicaid COMM PLAN - PLUS t MANAGED MEDICAID documented as of this encounter"
--- OUTSIDE RECORDS SUMMARY | 2020-09-25 12:20 | XMS REPORT | Summary of Care ---
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 [address] [address] Reason for Visit Reason Comments Abdominal Pain Epigastric Auth/Cert Status Reason Specialty Diagnoses / Referred By Referred To Procedures Contact Contact Emergency Medicine Diagnoses abdominal pain epigastric [facility] [address] [place] [address] Fax: Encounter Details Date Type Department Care Team Description 09/22/2020 Emergency [facility]-Emergency [place], Folusho Epigastri c pain Department F, 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 Seizures mometasone (NASONEX) Use 1 Beacon in 17 g 11 12/25/2017 Active 50 [...] complication, without long-term current use of insulin traMADoL 50 mg Take 1 tablet by 14 tablet 0 09/22/2020 Active tabletIndications: mouth every 6 chronic pain (six) hours as needed for Pain (scale 7-10). Indications: chronic pain documented as of this encounter (statuses as of 09/22/2020) Active Problems Problem Noted Date Need for influenza vaccination 08/13/2020 Cough 10/17/2019 Essential hypertension, benign 06/23/2017 Obesity (BMI 30-39.9) 04/27/2017 Seizures 02/18/2016 Overview: Currently being managed by Dr. Sierra in [place] Depression 02/18/2016 Overview: Currently being managed by (Patient cannot remember name) Colon polyps 01/05/2016 Overview: Needs repeat colonoscopy in 3 years, [place] roximately December 2018. 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 Asthma Overview: follows with Dr. Arambula in [place] documented as of this encounter (statuses as of 09/22/2020) Resolved Problems Problem Noted Date Resolved Date Abscess of abdominal wall 12/14/2015 05/26/2016 Bronchitis, allergic, mild persistent, with acute 08/07/2015 05/26/2016 exacerbation documented as of this encounter (statuses as of 09/22/2020) Immunizations Name Administration Dates Next Due Influenza [...] been in contact with No / Unsure 09/22/2020 3:03 PM LINING STRAP CLOSER someone who was confirmed or suspected to have Coronavirus / COVID-19? documented as of this encounter Last Filed Vital Signs Vital Sign Reading Time Taken Comments Blood Pressure 150/71 09/22/2020 6:30 PM LINING STRAP CLOSER Pulse 77 09/22/2020 6:30 PM LINING STRAP CLOSER Temperature 37.1 C (98.7 F) 09/22/2020 3:14 PM LINING STRAP CLOSER Respiratory Rate 16 09/22/2020 6:30 PM LINING STRAP CLOSER Oxygen Saturation 99% 09/22/2020 6:30 PM LINING STRAP CLOSER Inhaled Oxygen Concentration - - Weight 72.6 kg (160 lb) 09/22/2020 3:14 PM LINING STRAP CLOSER Height - - Body Mass Index 25.82 08/29/2020 1:40 PM LINING STRAP CLOSER documented in this encounter Discharge Instructions Zehra Fortune FNP - 09/22/2020 You were seen today for Chief Complaint Patient presents with Abdominal Pain Epigastric Your ER diagnosis was ICD-10-CM ICD-9-CM 1. Epigastric pain R10.13 789.06 NO LIFE-THREATENING FINDINGS ON TODAY'S EXAM. YOUR PRESCRIPTIONS : Medication List START taking these medications traMADoL 50 mg tablet Commonly known as: ULTRAM Take 1 tablet by mouth every 6 (six) hours as needed for Pain (scale 7-10). Indications: chronic pain ASK your doctor about these medications albuterol 2.5 mg /3 mL (0.083 %) nebulizer solution Commonly known as: PROVENTIL Inhale 3 mL every 6 (six) hours as needed for Wheezing or Shortness of Breath. blood sugar diagnostic strip Commonly known as: CHEMSTRIP BG One Touch Ultra. Check blood sugar at least once daily E11.9 budesonide-formoteroL 160-4.5 mcg/actuation inhaler Commonly known as: Symbicort Inhale 2 Puffs 2 (two) times daily. carBAMazepine 200 mg 12 hr tablet Commonly known as: TEGRETOL XR clonazePAM 1 mg tablet Commonly known as: KLONOPIN cyclobenzaprine 10 mg tablet Commonly known as: FLEXERIL Take 1 tablet by mouth 3 (three) times daily as needed for Muscle Spasms. fluticasone propionate 50 mcg/actuation nasal spray Use 2 Sprays in each nostril daily. * ipratropium 0.03 % nasal spray Commonly known as: ATROVENT Use 2 Sprays in each nostril 3 (three) times daily. * ipratropium 0.02 % nebulizer solution Commonly known as: ATROVENT Inhale 2.5 mL every 6 (six) hours as needed for Wheezing or Shortness of Breath. lancets 28 gauge Misc Commonly known as: FreeStyle Lancets Check blood sugar at least once daily. E11.9 levETIRAcetam 750 mg tablet Commonly known as: KEPPRA loratadine 10 mg tablet Commonly known as: CLARITIN TAKE ONE TABLET BY MOUTH DAILY maalox/lidocaine 2 %viscous 1:1 suspension (COMPOUNDED) Take 10 mL by mouth every 4 (four) hours as needed (epigatric burning). meloxicam 7.5 mg tablet Commonly known as: MOBIC Take 1 tablet by mouth daily. If not helping arthritis pain take 2 daily. mometasone 50 mcg/actuation nasal spray Commonly known as: Nasonex Use 1 Beacon in each nostril daily. montelukast 10 mg tablet Commonly known as: Singulair Take 1 tablet by mouth at bedtime. pantoprazole 40 mg EC tablet Commonly known as: PROTONIX Take 1 tablet by mouth daily for 30 days. pioglitazone 15 mg tablet Commonly known as: ACTOS Take 1 tablet by mouth daily for 30 days. triamcinolone acetonide 0.1 % ointment Commonly known as: KENALOG Apply to area(s) 3 (three) times daily. * This list has 2 medication(s) that are the same as other medications prescribed for you. Read thedirections carefully, and ask your doctor or other care provider to review them with you. Where to Get Your Medications You can get these medications from any pharmacy Bring a paper prescription for each of these medications traMADoL 50 mg tablet ER precautions and follow up : 1. Return to ER if your symptoms should worsen or fail to improve within 72 hours. 2. The care provided in the emergency room was for acute problems only. 3. 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 4. Fill and take all your medications as prescribed. 5. Make sure you are staying adequately hydrated. Busque attencion immediatamente si usted tiene los sitomas sigue, vuelve peor o si hay sitomas nuevas o para cualquiera preoccupacion incluyendo dolor del pecho, falta aire, se siente debile, mas fievre, mas dolor, nausea, vomitando, sangrando que no es normal, confusion, baja or pierdas conciencia. FOLLOW-UP RECOMMENDATIONS: RECOMMEND FOLLOW-UP WITH A PRIMARY CARE PROVIDER OR SPECIALIST IN 2-5 DAYS, ESPECIALLY IF NO IMPROVEMENT IN SYMPTOMS. MAY FOLLOW-UP WITH A PROVIDER OF YOUR CHOICE, SUCH : 1. A PHYSICIAN OF YOUR CHOICE 2. [facility] AND [facility], . LOCATIONS IN [facility] 3. [facility], [address] [place] [address]; [phone] OR, IF YOU WISH TO FOLLOW-UP WITHIN THE [facility], MAY TRY THESE OPTIONS (CLINIC APPOINTMENTS AVAILABLE ON AQMY-WS-QZLO BASIS): 1. SCHEDULE AN APPOINTMENT ONLINE AT [email or web address] 2. OR CALL THE [facility] AT OR 3. OR CALL YOUR [facility] PHYSICIAN'S OFFICE DIRECTLY IF YOU ARE ALREADY AN ESTABLISHED [facility] PATIENT. AttachmentsThe following attachments cannot be sent through Care Everywhere. Epigastric Pain (Uncertain Cause) (Irish)documented in this encounter ED Notes Gallito Lovett RN - 09/22/2020 3:13 PM CSTC/O epigastric pain radiating to the back starting around 12 today. Denies any NV. Last PO intake was today and was able to hold it down. Last BM was today. States "I was seen for the same thing on 08/31/[address] [facility] ER and was referred to a GI doctor. I had scope 2 weeks ago from a GI doctor in [place]. I called him today and was unable to get any results". documented in this encounter Miscellaneous Notes ED Nurse Note - Chloe Gonzales RN - 09/22/2020 6:46 PM CSTPt discharged with diagnosis of epigastric pain. Printed and verbal instructions reviewed with and given to patient. Prescriptions given x1. Pt verbalized understanding of teaching, medications, and recommended follow-up. Denies questions or concerns at this time. Pt ambulatory at discharge, appears in no apparent distress. No ataxia noted. D Nurse Note - Chloe Gonzales RN - 09/22/2020 6:38 PM CSTSpoke to Emmy in lab, was informed that UA results were being released. Charge nurse aware of delay. D Nurse Note - Chloe Gonzales RN - 09/22/2020 5:11 PM CSTLisa in lab notified of stat add-on for troponin. documented in this encounter Plan of Treatment Date Type Specialty Care Team Description 10/14/2020 Telemedicine Visit Family Medicine Roni Rodriguez MD [address] [place] [address] Dr [address] [place], [place] [address] [phone] 11/16/2020 Telemedicine Visit Family Medicine Roni Rodriguez MD [address] [place] [address] [address] [place], [place] [address] [phone] 11/18/2020 Office Visit Pulmonary Disease Jenny Roman DO [facility] [place] [address] Name Type Priority Associated Diagnoses Date/Ti me EKG-12 LEAD ROUTINE HEART STATION STAT Epigastric pain 09/07 5:06 PM ONCE LINING STRAP CLOSER Name Type Priority Associated Diagnoses Order S chedule EKG-12 LEAD ROUTINE HEART STATION STAT Epigastric pain ONCE for 1 Occurrences ONCE [...] encounter Procedures Procedure Name Priority Date/Time Associated Comments Diagnosis XR KUB STAT 09/22/2020 5:11 Epigastric pain Results for this PM LINING STRAP CLOSER procedure are i n the results section. URINALYSIS STAT 09/22/2020 4:40 Epigastric pain Results for this PM LINING STRAP CLOSER procedure are i n the results section. CBC WITH DIFF STAT 09/22/2020 4:33 Epigastric pain Results for this PM LINING STRAP CLOSER procedure are i n the results section. COMP. METABOLIC STAT 09/22/2020 4:33 Epigastric pain Resul ts for this PANEL (82024) PM LINING STRAP CLOSER procedure are in the results section. TROPONIN I STAT Add-On 09/22/2020 4:33 Epigastric pain Results for this PM LINING STRAP CLOSER procedure are i n the results section. LIPASE STAT 09/22/2020 4:33 Epigastric pain Results for this PM LINING STRAP CLOSER procedure are i n the results section. NOTICE OF PRIVACY Routine 09/22/2020 3:06 PRACTICES PM LINING STRAP CLOSER CONSENT/REFUSAL FOR Routine 09/22/2020 3:05 DIAGNOSIS AND PM LINING STRAP CLOSER TREATMENT documented in this encounter Results XR KUB (09/22/2020 5:11 PM LINING STRAP CLOSER) Specimen Impressions Performed At PACS/VR/DOSE Nonobstructive bowel gas pattern. Preliminary Report Dictated by Resident: Erik Antoine MD., have reviewe d this study and agree with the above report. Narrative Performed At PACS/VR/DOSE EXAM: XR KUB HISTORY: abdominal pain COMPARISON: 01/27/2017 FINDINGS: The bowel gas pattern is nonobstructive. Few air-fille d, nondistended loops of large and small bowel are noted. No radiopaque stones or masses are ident ified. No acute bony abnormalities. Cholecystec senthil clips are noted. Procedure Note [facility], Radiant Results Inft User - 2019 5:54 PM LINING STRAP CLOSER EXAM: XR KUB HISTORY: abdominal pain COMPARISON: 01/27/2017 FINDINGS: The bowel gas pattern is nonobstructive. Few air-filled, nondistended loops of large and small bowel are noted. No radiopaque stones or masses are ident ified. No acute bony abnormalities. Cholecystec senthil clips are noted. IMPRESSION Nonobstructive bowel gas pattern. Preliminary Report Dictated by Resident: Nicolás Stephen I, Erik Womack MD., have reviewed this study and agree with the above report. Performing Organization Address [facility] Phone Number PACS/VR/DOSE Urinalysis (09/22/2020 4:40 PM LINING STRAP CLOSER) Pathologist Sig nature APPEARANCE Clear Clear [facility] COLOR Straw (A) Yellow [facility] PH 8.0 4.8 - 8.0 [facility] SP GRAVITY 1.004 1.003 - 1.030 [facility] GLU U QUAL Normal Normal [facility] BLOOD Negative Negative [facility] KETONES 5 mg/dL (A) Negative [facility] PROTEIN Negative Negative [facility] UROBILIN Normal Normal [facility] BILIRUBIN Negative Negative [facility] NITRITE Negative Negative [facility] LEUK THAIS Negative Negative [facility] RBC/HPF 1 0 - 3 HPF [facility] WBC/HPF <1 0 - 5 HPF [facility] BACTERIA Few (A) Negative [facility] SQ EPITH <1 HPF [facility] Specimen Urine - URINE, CLEAN CATCH Performing Organization Address [facility]/Zipcode Phone Number [facility] CLIA: [id number] [place] [address] TROPONIN I (09/22/2020 4:33 PM LINING STRAP CLOSER) Pathologist Sig nature TROPONIN I <0.012 <=0.034 ng/mL [facility] Specimen Blood - VENOUS Narrative Performed At Equal or Less than 0.034 ng/ml---Normal [facility] Note: Cardiac troponin begins to [...] patient's use of biotin. Performing Organization Address [facility] Phone Number [facility] CLIA: [id number] [place] [address] [place] [address] Lipase, Serum (09/22/2020 4:33 PM LINING STRAP CLOSER) Pathologist Sig replaced by [facility] LIPASE 53 0 - 220 U/L [facility] Specimen Blood - VENOUS Performing Organization Address [facility] Phone Number [facility] CLIA: [id number] [place] [address] [place] [address] CBC with Differential (09/22/2020 4:33 PM LINING STRAP CLOSER) Pathologist Sig nature WBC 7.44 4.30 - 11.10 [facility] 10*3/L [facility] RBC 4.65 3.93 - 5.25 [facility] 10*6/L [facility] HGB 15.0 11.6 - 15.0 [facility] g/dL [facility] HCT 42.8 35.7 - 45.2 % [facility] MCV 92.0 80.6 - 95.5 fL [facility] MCH 32.3 25.9 - 32.8 pg [facility] MCHC 35.0 31.6 - 35.1 [facility] g/dL [facility] RDW-SD 39.8 39.0 - 49.9 fL [facility] RDW-CV 11.8 (L) 12.0 - 15.5 % [facility] PLT 206 166 - 358 [facility] 10*3/L [facility] MPV 12.1 9.5 - 12.9 [facility] NRBC/100 WBC 0.0 0.0 - 10.0 /100 [facility] WBCs [facility] NRBC x10^3 <0.01 10*3/L [facility] GRAN MAT (NEUT) % 61.5 % [facility] IMM GRAN % 0.40 % [facility] LYMPH % 28.0 % [facility] MONO % 7.9 % [facility] EOS % 1.5 % [facility] BASO % 0.7 % [facility] GRAN MAT x10^3(ANC) 4.58 1.88 - 7.09 [facility] 10*3/uL [facility] IMM GRAN x10^3 0.03 0.00 - 0.06 [facility] 10*3/uL [facility] LYMPH x10^3 2.08 1.32 - 3.29 [facility] 10*3/uL [facility] MONO x10^3 0.59 0.33 - 0.92 [facility] 10*3/uL [facility] EOS x10^3 0.11 0.03 - 0.39 [facility] 10*3/uL [facility]PITAL [facility] BASO x10^3 0.05 0.01 - 0.07 [facility] 10*3/uL [facility] Specimen Blood - VENOUS Performing Organization Address City/State/Zipcode Phone Number [facility] CLIA: [id number] [place] [address] Complete Metabolic Panel (09/22/2020 4:33 PM LINING STRAP CLOSER) NA 134 (L) 135 - 145 [facility] mmol/L [facility] K 3.9 3.5 - 5.0 [facility] mmol/L [facility] CL 98 98 - 108 mmol/L [facility] CO2 TOTAL 27 23 - 31 mmol/L [facility] AGAP 9 2 - 16 [facility] BUN 6 (L) 7 - 23 mg/dL [facility] GLUCOSE 131 (H) 70 - 110 mg/dL [facility] CREATININE 0.44 (L) 0.50 - 1.04 [facility] mg/dL [facility] TOTAL BILI 0.5 0.1 - 1.1 mg/dL [facility] CALCIUM 9.9 8.6 - 10.6 [facility] mg/dL [facility] T PROTEIN 7.7 6.3 - 8.2 g/dL [facility] ALBUMIN 4.8 3.5 - 5.0 g/dL [facility] ALK PHOS 84 34 - 122 U/L [facility] ALTv 50 (H) 5 - 35 U/L [facility] AST(SGOT) 48 (H) 13 - 40 U/L [facility] eGFR Calculation 145.4 mL/min/1.73m2 [facility] [place]) eGFR Calculation 176.2 mL/min/1.73m2 [facility] () [facility] Specimen Blood - VENOUS [...] tests). Performing Organization Address City/State/Zipcode Phone Number [facility] CLIA: [id number] [place] [address] documented in this encounter Visit Diagnoses Diagnosis Epigastric pain - Primary Abdominal pain, epigastric documented in this encounter Administered Medications Medication Order MAR Action Action Date Dose Rate Site maalox:diphenhydrAMINE:lidocaine 2 Given 09/22/2020 4:54 PM LINING STRAP CLOSER 15 mL % viscous 1:1:1 (FIRST-MOUTHWASH BLM) oral suspension 15 mL 15 mL, Oral, ONCE, 1 dose, Sun09/22/20 at 1800, Routine morpHINE injection 4 mg Given 09/22/2020 5:22 PM LINING STRAP CLOSER 4 mg 4 mg, Slow IV Push, ONCE, 1 dose, Sun09/22/20 at 1815, STAT ondansetron (ZOFRAN (PF)) injection 4 mg Given 09/22/2020 5:22 PM LINING STRAP CLOSER 4 mg 4 mg, Slow IV Push, ONCE, 1 dose, Sun09/22/20 at 1815, CECILLE pantoprazole (PROTONIX) 40 mg in NaCl 0.9% Given 09/22/2020 5:2 2 PM LINING STRAP CLOSER 40 mg (NS) 100 mL MINI-BAG 40 mg, IV Piggyback, ONCE, 1 dose, Sun09/22/20 at 1815, 100 mL documented in this encounter Insurance Payer Benefit Plan / Subscriber ID Effective Dates Phone Addre ss Type Group [facility] [id number] 2019-Present Medicaid COMM PLAN - PLUS MANAGED MEDICAID documented as of this encounter
[2020-09-25 12:45] LABS: Absolute Lymphocytes (CBC) 1.9 K/uL (0.7-4.9); Basophils % 0.7 % (0-1.3); Hematocrit 48.3 % (36.0-45.0); Lymphocytes % 21.5 % (15.3-44.8); MPV 10.8 fL (7.6-11.3); RBC Red Blood Cell Count 5.11 M/uL (3.86-4.86)
[2020-09-25] MEDS ORDERED: NA CHLORIDE 0.9% 1,000 ML ONE (12:50)
[2020-09-25] MEDS ORDERED: ONDANSETRON 4 MG/2 ML VIAL ONE (12:50)
[2020-09-25] MEDS ORDERED: MORPHINE 4 MG/ML SYR ONE ×2 (12:50→14:42)
[2020-09-25 12:58] LABS: ALT/SGPT 61 U/L (12-78); AST/SGOT 36 U/L (15-37); Albumin 4.6 g/dL (3.4-5.0); Alkaline Phosphatase 86 U/L (45-117); BUN Blood Urea Nitrogen 5 mg/dL (7-18); Bicarbonate 22 mmol/L (21-32); Bilirubin Direct 0.2 mg/dL (0-0.2); Bilirubin Total 0.4 mg/dL (0.2-1.0); Glucose Level 191 mg/dL (74-106); Lipase 77 U/L (73-393); Potassium 3.3 mmol/L (3.5-5.1); Protein, Total 8.5 g/dL (6.4-8.2); Sodium Level 138 mmol/L (136-145)
--- NOTE | 2020-09-25 14:16 | RAD REPORT ---
EXAM DESCRIPTION: CT - Abdomen Pelvis W Contrast - 09/25/2020 1:14 pm CLINICAL HISTORY: ABD PAIN COMPARISON: <Comparisons> TECHNIQUE: Biphasic, helical CT imaging of the abdomen and pelvis was performed following 100 ml non -ionic IV contrast. Oral contrast was given. All CT scans are performed using dose optimization technique as appropriate and may include automated exposure control or mA/KV adjustment according to patient size. FINDINGS: No suspicious findings in the lung bases. The liver, spleen, and pancreas show no suspicious findings. Liver shows a fatty infiltration pattern . Cholecystectomy clips are present. No biliary tree dilatation. Symmetric renal function is seen with no hydronephrosis or suspicious renal mass. No pyelonephritis o r acute parenchymal process. Well filled urinary bladder shows no suspicious finding. No adrenal abno rmalities. Uterus and ovaries show no acute findings. No dilated bowel loops or bowel wall thickening. Appendix is normal. No free air, free fluid or infla mmatory stranding. No hernia, mass or bulky lymphadenopathy. Patient has a few small nonspecific mes enteric lymph nodes. No suspicious bony findings. IMPRESSION: Contrast enhanced CT abdomen and pelvis showing no acute or emergent finding finding.
[2020-09-25] MEDS ORDERED: POTASSIUM CL SA 10 MEQ TAB PO ONE (14:34)
--- NOTE | 2020-09-25 14:34 | ER ---
Nurse's Notes Former[facility] Name: Ml Patino Age: 60 yrs Sex: Female : 1960 Arrival Date: 09/25/2020 Time: 12:17 Bed 6 Private MD: Diagnosis: Upper abdominal pain, unspecified-chronic;Epilepsy and recurrent seizures Presentation: 09/25 12:24 Chief complaint: Patient states: epigastric and LUQ pain, diarrhea x 2 wks. Denies n/v. sv Tramadol, Flexeril taken at 1000 and Lidoc/antacids taken 0630. Had a seizure 2 days ago and has been taking her meds as ordered. Coronavirus screen: Client denies travel out of the [place] in the last 14 days. At this time, the client does not indicate any symptoms associated with coronavirus-19. Ebola Screen: No symptoms or risks identified at this time. Initial Sepsis Screen: Does the patient meet any 2 criteria? HR > 90 bpm. No. Patient's initial sepsis screen is negative. Does the patient have a suspected source of infection? Yes: Acute abdominal pain. Risk Assessment: Do you want to hurt yourself or someone else? Patient reports no desire to harm self or others. Onset of symptoms was September 2020. 12:24 Method Of Arrival: Ambulatory sv 12:24 Acuity: CHARAN 2 sv Historical: - Allergies: 12:28 No Known Allergies; sv - PMHx: 12:28 Seizures; Diabetes - NIDDM; sv - PSHx: 12:28 Cholecystectomy; ; sv - Immunization history:: Flu vaccine is up to date. - Social history:: Smoking status: Patient denies any tobacco usage or history of. Screenin:21 Abuse screen: Denies threats or abuse. Nutritional screening: No deficits noted. tw2 Tuberculosis screening: No symptoms or risk factors identified. Fall Risk None identified. Assessment: 12:40 General: Appears in no apparent distress. uncomfortable, Behavior is cooperative, ph appropriate for age, anxious, Denies fever. Pain: Complains of pain in epigastric area Pain radiates to left upper quadrant. Neuro: Level of Consciousness is awake, alert, obeys commands, Oriented to person, place, time, situation. Cardiovascular: Capillary refill < 3 seconds in bilateral fingers Patient's skin is warm and dry. Respiratory: Airway is patent Respiratory effort is even, unlabored, Respiratory pattern is regular, symmetrical. GI: Abdomen is non-distended, Reports upper abdominal pain, diarrhea, Patient currently denies vomiting. : No signs and/or symptoms were reported regarding the genitourinary system. Derm: Skin is intact, Skin is pink, warm \T\ dry. Musculoskeletal: Circulation, motion, and sensation intact. Range of motion: intact in all extremities. 13:45 Reassessment: Patient appears in no apparent distress at this time. No changes from tw2 previously documented assessment. Patient and/or family updated on plan of care and expected duration. Pain level reassessed. Patient is alert, oriented x 3, equal unlabored respirations, skin warm/dry/pink. Patient states feeling better. 15:16 Reassessment: Patient appears in no apparent distress at this time. No changes from tw2 previously documented assessment. Patient and/or family updated on plan of care and expected duration. Pain level reassessed. Patient is alert, oriented x 3, equal unlabored respirations, skin warm/dry/pink. Patient states feeling better. Vital Signs: 12:24 BP 157 / 80; Pulse 136; Resp 20; Temp 98.1; Pulse Ox 99% ; Weight 72.57 kg; Height 5 sv ft. 5 in. (165.10 cm); Pain 10/10; 12:55 BP 146 / 66; Pulse 114; Resp 18; Pulse Ox 100% on R/A; ph 13:45 BP 142 / 78; Pulse 104; Resp 17; Pulse Ox 100% on R/A; tw2 14:45 BP 154 / 76; Pulse 96; Resp 17; Pulse Ox 100% on R/A; ll1 15:16 BP 141 / 81; Pulse 92; Resp 17; Pulse Ox 100% on R/A; tw2 12:24 Body Mass Index 26.62 (72.57 kg, 165.10 cm) sv ED Course: 12:17 Patient arrived in ED. ds1 12:18 Domonique Jacobo FNP-C is [facility]. kb 12:18 Michel Cross MD is Attending Physician. kb 12:20 Bed in low position. Call light in reach. Adult w/ patient. Pulse ox on. NIBP on. tw2 12:23 Landrum, Akosua, RN is Primary Nurse. ph 12:23 Arm band placed on Patient placed in an exam room, on a stretcher. ph 12:27 Triage completed. sv 12:33 Inserted saline lock: 22 gauge in right forearm, using aseptic technique. Blood tw2 collected. 13:15 CT Abd/Pelvis - IV Contrast Only In Process Unspecified. EDMS 14:44 Awaiting: IV medication from pharmacy at this time. ll1 15:17 No provider procedures requiring assistance completed. IV discontinued, intact, tw2 bleeding controlled, No redness/swelling at site. Pressure dressing applied. Administered Medications: 12:37 Drug: NS 0.9% 1000 ml Route: IV; Rate: 1000 ml; Site: right forearm; tw2 14:38 Follow up: Response: No adverse reaction; RASS: Alert and Calm (0); IV Status: ll1 Completed infusion; IV Intake: 1000ml 12:37 Drug: Zofran (Ondansetron) 4 mg Route: IVP; Site: right forearm; tw2 12:54 Follow up: Response: No adverse reaction ph 12:39 Drug: morphine 4 mg {Note: RASS 0.} Route: IVP; Site: right forearm; tw2 12:54 Follow up: Response: No adverse reaction; Pain is decreased; RASS: Drowsy (-1) ph 14:38 Drug: Potassium Chloride 20 mEq Route: PO; ll1 14:45 Follow up: Response: No adverse reaction ll1 14:38 Drug: morphine 4 mg Route: IVP; Site: right antecubital; ll1 15:16 Follow up: Response: No adverse reaction; Pain is decreased; RASS: Alert and Calm (0) tw2 14:38 Drug: Pepcid 20 mg Route: IVP; Site: right antecubital; ll1 15:16 Follow up: Response: No adverse reaction tw2 14:49 Drug: Keppra 1000 mg Route: IV; Rate: calculated rate; Site: right forearm; tw2 15:10 Follow up: IV Status: Completed infusion; IV Intake: 100ml tw2 Intake: 14:38 IV: 1000ml; Total: 1000ml. ll1 15:10 IV: 100ml; Total: 1100ml. tw2 Outcome: 14:33 Discharge ordered by MD. harrison 15:17 Discharged to home ambulatory, with family. tw2 15:17 Condition: stable 15:17 Discharge instructions given to patient, family, Instructed on discharge instructions, follow up and referral plans. medication usage, Demonstrated understanding of instructions, follow-up care, medications, Prescriptions given X 3. 15:17 Patient left the ED. tw2 Signatures: Dispatcher [employer] EDMS Domonique Jacobo, MEDICAL CLAIMS SPECIALIST-C MEDICAL CLAIMS SPECIALIST-Eli Hall, RN RN sv Jazzy Patrick ds1 Akosua Landrum RN RN Awa Chadwick RN RN tw2 Catina Flowers RN RN ll1 Corrections: (The following items were deleted from the chart) 12:28 12:24 Chief complaint: Patient states: epigastric and LUQ pain, diarrhea x 2 wks. sv Denies n/v. Tramadol, Flexeril taken at 1000 and Lidoc/antacids taken 0630. 15:17 15:16 Reassessment: Patient appears in no apparent distress at this time. No changes tw2 from previously documented assessment. Patient and/or family updated on plan of care and expected duration. Pain level reassessed. Patient is alert, oriented x 3, equal unlabored respirations, skin warm/dry/pink. tw2
--- NOTE | 2020-09-25 14:34 | EDPHYS ---
Physician Documentation [facility] Name: Ml Patino Age: 60 yrs Sex: Female : 1960 Arrival Date: 09/25/2020 Time: 12:17 Bed 6 Private MD: ED Physician Michel Cross HPI: 09/25 14:30 This 60 yrs old Female presents to ER via Ambulatory with complaints of kb Abdominal Pain. 14:30 The patient presents with abdominal pain in the upper abdomen. Onset: The kb symptoms/episode began/occurred 2 year(s) ago. The symptoms radiate to Associated signs and symptoms: none. The symptoms are described as constant. Modifying factors: The symptoms are alleviated by nothing, the symptoms are aggravated by nothing. Severity of pain: At its worst the pain was moderate in the emergency department the pain is unchanged. The patient has not experienced similar symptoms in the past. The patient has not recently seen a physician. Pt reports upper abd pain that has been going on for [address] Samson for this and has had multiple tests done, diagnosed with gastritis. States she came in today because of the pain and also because she is out of [facility] for epilepsy and had a seizure yesterday. States she won't be able to get her meds until Sunday. Normally takes 2 - 750mg tabs BID. Historical: - Allergies: 12:28 No Known Allergies; sv - PMHx: 12:28 Seizures; Diabetes - NIDDM; sv - PSHx: 12:28 Cholecystectomy; ; sv - Immunization history:: Flu vaccine is up to date. - Social history:: Smoking status: Patient denies any tobacco usage or history of. ROS: 14:29 Constitutional: Negative for fever, chills, and weight loss, Cardiovascular: Negative kb for chest pain, palpitations, and edema, Respiratory: Negative for shortness of breath, cough, wheezing, and pleuritic chest pain, Back: Negative for injury and pain, MS/Extremity: Negative for injury and deformity, Skin: Negative for injury, rash, and discoloration, Neuro: Negative for headache, weakness, numbness, tingling, and seizure. 14:29 Abdomen/GI: Positive for abdominal pain, Negative for nausea, vomiting, and diarrhea. Exam: 14:29 Constitutional: This is a well developed, well nourished patient who is awake, alert, kb and in no acute distress. Head/Face: Normocephalic, atraumatic. Chest/axilla: Normal chest wall appearance and motion. Nontender with no deformity. No lesions are appreciated. Cardiovascular: Regular rate and rhythm with a normal S1 and S2. No gallops, murmurs, or rubs. Normal PMI, no JVD. No pulse deficits. Respiratory: Lungs have equal breath sounds bilaterally, clear to auscultation and percussion. No rales, rhonchi or wheezes noted. No increased work of breathing, no retractions or nasal flaring. Skin: Warm, dry with normal turgor. Normal color with no rashes, no lesions, and no evidence of cellulitis. MS/ Extremity: Pulses equal, no cyanosis. Neurovascular intact. Full, normal range of motion. Neuro: Awake and alert, GCS 15, oriented to person, place, time, and situation. Cranial nerves II-XII grossly intact. Motor strength 5/5 in all extremities. Sensory grossly intact. Cerebellar exam normal. Normal gait. 14:29 Abdomen/GI: Inspection: abdomen appears normal, Bowel sounds: normal, in all quadrants, Palpation: soft, in all quadrants, mild abdominal tenderness, in the right upper quadrant and left upper quadrant. Vital Signs: 12:24 BP 157 / 80; Pulse 136; Resp 20; Temp 98.1; Pulse Ox 99% ; Weight 72.57 kg; Height 5 sv ft. 5 in. (165.10 cm); Pain 10/10; 12:55 BP 146 / 66; Pulse 114; Resp 18; Pulse Ox 100% on R/A; ph 13:45 BP 142 / 78; Pulse 104; Resp 17; Pulse Ox 100% on R/A; tw2 14:45 BP 154 / 76; Pulse 96; Resp 17; Pulse Ox 100% on R/A; ll1 15:16 BP 141 / 81; Pulse 92; Resp 17; Pulse Ox 100% on R/A; tw2 12:24 Body Mass Index 26.62 (72.57 kg, 165.10 cm) sv MDM: 12:27 Patient medically screened. kb 14:20 Data reviewed: vital signs, nurses notes. Data interpreted: Pulse oximetry: on room air kb is 100 %. Interpretation: normal. Counseling: I had a detailed discussion with the patient and/or guardian regarding: the historical points, exam findings, and any diagnostic results supporting the discharge/admit diagnosis, lab results, radiology results, the need for outpatient follow up, a art gallery director, to return to the emergency department if symptoms worsen or persist or if there are any questions or concerns that arise at home. 09/25 12:33 Order name: Basic Metabolic Panel; Complete Time: 13:00 kb 09/25 12:33 Order name: CBC with Diff; Complete Time: 12:56 kb 09/25 12:33 Order name: Hepatic Function; Complete Time: 13:00 kb 09/25 12:33 Order name: Lipase; Complete Time: 13:00 kb 09/25 12:54 Order name: CT Abd/Pelvis - IV Contrast Only; Complete Time: 14:18 kb 09/25 12:33 Order name: IV Saline Lock; Complete Time: 12:33 kb 09/25 12:33 Order name: Labs collected and sent; Complete Time: 12:33 kb Administered Medications: 12:37 Drug: NS 0.9% 1000 ml Route: IV; Rate: 1000 ml; Site: right forearm; tw2 14:38 Follow up: Response: No adverse reaction; RASS: Alert and Calm (0); IV Status: ll1 Completed infusion; IV Intake: 1000ml 12:37 Drug: Zofran (Ondansetron) 4 mg Route: IVP; Site: right forearm; tw2 12:54 Follow up: Response: No adverse reaction ph 12:39 Drug: morphine 4 mg {Note: RASS 0.} Route: IVP; Site: right forearm; tw2 12:54 Follow up: Response: No adverse reaction; Pain is decreased; RASS: Drowsy (-1) ph 14:38 Drug: Potassium Chloride 20 mEq Route: PO; ll1 14:45 Follow up: Response: No adverse reaction ll1 14:38 Drug: morphine 4 mg Route: IVP; Site: right antecubital; ll1 15:16 Follow up: Response: No adverse reaction; Pain is decreased; RASS: Alert and Calm (0) tw2 14:38 Drug: Pepcid 20 mg Route: IVP; Site: right antecubital; ll1 15:16 Follow up: Response: No adverse reaction tw2 14:49 Drug: Keppra 1000 mg Route: IV; Rate: calculated rate; Site: right forearm; tw2 15:10 Follow up: IV Status: Completed infusion; IV Intake: 100ml tw2 Disposition: 15:43 Co-signature as Attending Physician, Michel Cross MD. rn Disposition: 09/25/20 14:33 Discharged to Home. Impression: Upper abdominal pain, unspecified - chronic, Epilepsy and recurrent seizures. - Condition is Stable. - Discharge Instructions: Abdominal Pain, Adult, [id number], Seizure, Adult, [id number]. - Prescriptions for Bentyl 20 mg Oral Tablet - take 1 tablet by ORAL route every 6 hours As needed; 20 tablet. Zofran 4 mg Oral Tablet - take 1 tablet by ORAL route every 6 hours As needed; 20 tablet. Keppra 750 mg Oral Tablet - take 2 tablet by ORAL route every 12 hours; 28 tablet. - Medication Reconciliation Form, Thank You Letter, Antibiotic Education, Prescription Opioid Use form. - Follow up: Emergency Department; When: As needed; Reason: Worsening of condition. Follow up: Private Physician; When: 2 - 3 days; Reason: Recheck today's complaints, Continuance of care, Re-evaluation by your physician. Signatures: Dispatcher [employer] EDDomonique Stephens, FILIBERTO-C LEVER TENDER-Eli Hall, RN RN Michel Roger MD MD rn Wise, Tara, RN RN tw2 Catina Flowers RN RN 1 Akosua Landrum RN Corrections: (The following items were deleted from the chart) 15:17 14:33 09/25/2020 14:33 Discharged to Home. Impression: Upper abdominal pain, tw2 unspecified - chronic; Epilepsy and recurrent seizures. Condition is Stable. Discharge Instructions: Abdominal Pain, Adult, [id number], Seizure, Adult, [id number]. Prescriptions for Bentyl 20 mg Oral Tablet - take 1 tablet by ORAL route every 6 hours As needed; 20 tablet, Zofran 4 mg Oral Tablet - take 1 tablet by ORAL route every 6 hours As needed; 20 tablet, Keflex 750 mg Oral capsule - take 2 capsule by ORAL route 2 times per day; 28 capsule. and Forms are Medication Reconciliation Form, Thank You Letter, Antibiotic Education, Prescription Opioid Use. Follow up: Emergency Department; When: As needed; Reason: Worsening of condition. Follow up: Private Physician; When: 2 - 3 days; Reason: Recheck today's complaints, Continuance of care, Re-evaluation by your physician. kb
[2020-09-25] MEDS ORDERED: FAMOTIDINE 20 MG/2 ML VIAL IV ONE (14:42)
[2020-09-25] MEDS ORDERED: levETIRAcetam 1,000 MG in NA CHLORIDE 0.9% 100 ML IV ONE (14:45)
[2020-09-28 00:58] VITALS: TEMP 98.1
[2020-09-28 00:59] VITALS: O2SAT 100
[2020-09-28 01:03] VITALS: BP 141/81
== END 2020-09-25 15:17 | disposition home or self-care (01) ==
LOC: ER 12:13
DX: R10.10 Upper abdominal pain, unspecified (principal); G40.909 Epilepsy, unspecified, not intractable, without status epilepticus
CPT/HCPCS: 85025; 80048; 36415; 80076; 83690; 74177; Q9967; J1953; J7030; J2405; 99284